=== PATIENT | female | born 1970 | race Caucasian/White ===

== ENCOUNTER 2025-05-10 16:35 | Emergency (ER) | payer MEDICAID, SELFPAY ==
[2025-05-10 16:37] VITALS: BMI 39.4
[2025-05-10 17:01] VITALS: BP 117/74; PULSE 81; RESP 20; TEMP 36.6; O2SAT 93
--- NOTE | 2025-05-10 17:31 | XR_ITS ---
Examination: PA lateral chest 2 views TECHNIQUE: Upright PA and lateral chest 2 views Date and time: May 10, 2025 1811 hours INDICATIONS: Shortness of breath today. FINDINGS: Normal heart size. Subtle opacity at the lung bases No pulmonary edema IMPRESSION: Basilar bronchitis pattern
--- NOTE | 2025-05-10 17:31 | EKG_ITS ---
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
--- NOTE | 2025-05-10 17:50 | EDNOTE_ITS ---
ED Back Injury Pain RME/HPI General Chief Complaint: Back Pain/Injury Stated Complaint: MY HEART FEELS FUNNY, I'M DYING. SOB, BACK PAIN Time Seen by Provider: 05/10/25 17:07 Arrival date/time: 05/10/25 16:35 RME / HPI RME / HPI Narrative: 55-year-old female presents to the ED with a complaint of tightness in her chest, palpitations, described as fluttering that occurred once yesterday and once today prior to arrival. She also has mid back pain and shortness of breath. She has had chills but no fever. She denies any runny nose, nasal congestion, ear pain or sore throat. She has a current cough which she attributes to her COPD. Related Data Home Medications ?Medication ?Instructions ?Recorded ?Confirmed bupropion HCl 100 mg tablet 100 mg PO BID 04/16/2105/26 clonazepam 1 mg tablet 1 mg PO HS 04/16/21 07/13/21 divalproex 500 mg tablet,extended 1,000 mg PO QPM 04/0507/13/21 release 24 hr fluticasone propionate 220 1 puff inhalation BID 04/1607/13/21 mcg/actuation HFA aerosol inhaler (Flovent HFA) buspirone 15 mg tablet 15 mg PO QDAY 07/13/2107/13 Previous Rx's ?Medication ?Instructions ?Recorded albuterol sulfate 90 mcg/actuation 1 inh inhalation QI D PRN shortness 07/17/21 aerosol inhaler of breath or wheezing #6.7 g soni budesonide-formoterol HFA 80 2 puff inhalation BID #10 .2 grams 07/17/21 mcg-4.5 mcg/actuation aerosol inhaler nicotine 7 mg/24 hr daily 7 mg topical Q24H #7 ea 07/06 11/26 transdermal patch prednisone 20 mg tablet See Taper PO QDAY #11 tabs 1 albuterol sulfate 90 mcg/actuation 2 inh inhalation Q4 H PRN shortness 09/13/22 breath activated powder inhaler of breath or wheezing #1 ea albuterol sulfate 90 mcg/actuation 2 puff inhalation Q 4H PRN 05/10/25 aerosol inhaler shortness of breath or wheez ing #8.5 grams azithromycin 250 mg tablet 250 mg PO QDAY 4 days #4 ta bs 05/10/25 (Zithromax) prednisone 20 mg tablet 60 mg (3 x 20 mg) PO QDAY 4 days 05/10/25 #12 tabs Allergies Allergy/AdvReac Type Severity Reaction Status Date / Time No Known Allergies Allergy Verified 05/10/25 16:40 Review of Systems Review of Systems Systems Reviewed: All systems reviewed, normal except as documented Past Medical History Past Medical History NEUROLOGIC: Negative Neurological Disorders CARDIAC: Positive Cardiac Disorders, Hypercholesterolemia and Hypertension; Negative Congestive Heart Failure RESPIRATORY: Positive Chronic Obstructive Pulmonary Disease (COPD), Asthma, Emphysema, Cough, Smoking and Tobacco Use GASTROINTESTINAL: Negative Gastrointestinal Disorders GENITOURINARY: Negative Genitourinary Disorders or Renal Disease ENDOCRINE: Positive Diabetes Mellitus Type 2; Negative Diabetes Mellitus Type 1 HEMATOLOGIC: Negative Sickle Cell Disease PSYCHO/SOCIAL: Positive Schizophrenia, Recreational Drug Use, Bipolar Disorder, Depression and Anxiety OTHER HISTORY: Negative Hospitalization, Autoimmune Disease, Down Syndrome, Shingles, Falls, Anesthesia Reactions or Cancer Family History FAMILY HISTORY: Positive Family Cardiac Disorders and Family Cancer Surgical History SURGICAL: Positive Abdominal Surgery and Section Social History SMOKING STATUS: Current every day smoker SECOND HAND EXPOSURE: Yes SUBSTANCE USE: methamphetamine ED Exam Narrative Physical exam: A&O, afebrile and non-toxic appearing 55-year-old female, no acute respiratory distress. Lung sounds reveal rhonchi and wheezing throughout. RRR, Abdomen is soft, nontender, and non-distended. She has no CVA tenderness. Moves all extremities well. Course Course Course Narrative: COVID and influenza A/B swabs as well as RSV swabS are negative. 2 view XR chest was ordered and reveals basilar bronchitis pattern, due to subtle opacity at the lung bases. She was given dexamethasone 10 mg p.o. and given a DuoNeb treatment. CBC reveals a normal white count, normal H&H and normal platelets. Procalcitonin is less than 0.04. Coags are normal. Chemistry panel reveals normal electrolytes with a minimally low glucose of 71. Renal function and liver functions are normal. LDH is normal at 204, troponin is normal at less than 0.002, BNP is normal at 23. Urinalysis is negative for infection. Quality Measures none Orders Category Date Time Status Bedside COVID-19 Antigen Test NOW Care 05/10/25 17:31 Active Bedside Influenza A&B Antigen Test NOW Care 05/10/25 17:32 Completed EKG (ED ONLY) *Do not use* NOW Care 05/10/25 17:31 Completed EKG (ED Only) Stat Exams 05/10/25 17:31 Draft XR chest 2V Stat Exams 05/10/25 17:31 Completed B-Type Natriuretic Peptide Stat Lab 05/10/25 17:44 Completed CBC Stat Lab 05/10/25 17:44 Completed CMP [Comprehensive Metabolic Panel] Stat Lab 05/10/25 17:44 Completed Drug Screen,Urine Stat Lab 05/10/25 18:15 Completed HCG Qualitative,Urine Stat Lab 05/10/25 18:15 Completed LDH (Lactate Dehydrogenase) Stat Lab 05/10/25 17:44 Completed Magnesium Stat Lab 05/10/25 17:44 Completed Partial Thromboplastin Time Stat Lab 05/10/25 17:44 Completed Procalcitonin Stat Lab 05/10/25 17:44 Completed Prothrombin Time with INR Stat Lab 05/10/25 17:44 Completed RSV [Respiratory Syncytial Virus Ag] Stat Lab 05/10/25 20:10 Completed Troponin I Stat Lab 05/10/25 17:44 Completed Urinalysis, C/S if Indicated Stat Lab 05/10/25 18:15 Completed Albuterol/Ipratr Rt Marly [Duoneb Rt Marly] Med 05/10/25 17:31 Discontinued 3 ml INH X1 ONE dexAMETHasone TAB [Decadron Tab] Med 05/10/25 17:31 Discontinued 10 mg PO X1 ONE Vital Signs Vital signs: Vital Signs Temperature 97.8 F 05/10/25 17:01 Pulse Rate 81 05/10/25 17:01 Respiratory Rate 20 05/10/25 17:01 Blood Pressure 117/74 05/10/25 17:01 Pulse Oximetry (%) 93 L 05/10/25 17:01 Oxygen Delivery Method Room Air 05/10/25 17:01 Back Pain / Injury MDM Narrative MDM Narrative:: Symptoms, exam and diagnostic studies are consistent with: Lower Respiratory Tract Infection. Patient was discharged home in stable condition. Patient/family advised to follow-up with their PCP in 24-48 hours. Encouraged to return to the ED for any new or worsening symptoms. Patient data External records reviewed:: [facility] previous records Clinical information provided by:: patient Social determinants that could affect healthcare access:: none Patient has the following chronic illnesses:: Schizophrenia, history of pneumonia, asthma, COPD How is presenting disease/condition affected by chronic disease/condition?: exacerbated by Evaluation data The following diagnostics were reviewed and interpreted by me:: lab results and radiology exam(s) Lab and/or radiology exams considered but not ordered:: N/A Interpretation Summary: As noted above Medications / Prescriptions Medications or Prescriptions considered but not ordered:: N/A Medication administrations:: Medication Administration History Discontinued Medications Albuterol/Ipratropium (Albuterol/Ipratropium (Duoneb) Rt Marly 3 Ml Nebu) 3 ml INH X1 ONE Stop: 05/10/25 17:32 Last Admin: 05/10/25 19:23 Dose: 3 ml Documented By: SAADIA Dexamethasone (Dexamethasone 4 Mg Tablet) 10 mg PO X1 ONE Stop: 05/10/25 17:32 Last Admin: 05/10/25 19:10 Dose: 10 mg Documented By: CB As noted above Consultations Consultation(s) initiated? (list below): No Diagnosis Differential diagnosis back pain/injury: pyelonephritis and other (Pneumonia, myofascial pain syndrome) Most likely diagnosis given after review of the tests above:: Pneumonia/lower respiratory tract infection. Admission Indicated Admission indicated?: not indicated Explain why admission is indicated or not indicated:: Patient is stable for discharge Admission Request Was there a request for admission?: No Admission Attestation Admission request attestation: N/A Disposition Plan Disposition Plan: Discharge Discharge Attestation Discharge Attestation: The patient and all family members were given an opportunity to ask questions and understood the discharge instructions. Discharge instructions specifically effects, indications for sooner follow up or return to the emergency department, and the expected course of current diagnosis. Patient condition: Stable Discharge Plan Plan Patient Disposition: HOME (Self Care) Discharge Disposition comment: Stable Prescriptions/Referrals Prescriptions/Med Rec: New azithromycin [Zithromax] 250 mg tablet 250 mg PO QDAY 4 Days Qty: 4 0RF Rx Instructions: start on day 2 of therapy albuterol sulfate 90 mcg/actuation HFA aerosol inhaler 2 puff inhalation Q4H PRN (Reason: shortness of breath or wheezing) Qty: 8.5 0RF prednisone 20 mg tablet 60 mg PO QDAY 4 Days Qty: 12 0RF No Action clonazepam 1 mg tablet 1 mg PO HS bupropion HCl 100 mg tablet 100 mg PO BID divalproex 500 mg tablet extended release 24 hr 1,000 mg PO QPM Flovent HFA 220 mcg/actuation HFA aerosol inhaler 1 puff INHALATION BID Patient Comments: INHALE ONE PUFF BY MOUTH TWICE DAILY buspirone 15 mg tablet 15 mg PO QDAY albuterol sulfate 90 mcg/actuation HFA aerosol inhaler 1 inh inhalation QID PRN (Reason: shortness of breath or wheezing) Qty: 6.7 0RF budesonide-formoterol 80-4.5 mcg/actuation HFA aerosol inhaler 2 puff inhalation BID Qty: 10.2 0RF prednisone 20 mg tablet See Taper PO QDAY Qty: 11 0RF Taper: Prednisone Taper 20 mg DAILY for 2 Days and 0 Hour 10 mg DAILY for 2 Days and 0 Hour 5 mg DAILY for 7 Days and 0 Hour nicotine 7 mg/24 hr patch 24 hour 7 mg topical Q24H Qty: 7 0RF albuterol sulfate 90 mcg/actuation aerosol powdr breath activated 2 inh inhalation Q4H PRN (Reason: shortness of breath or wheezing) Qty: 1 0RF Referrals: Deirdre Smith MD [Primary Care Provider] - In 1 week Problem List Clinical Impression: Community acquired pneumonia Patient/Caregiver Discharge Instructions Education Materials: ED Pneumonia (Adult) Additional Instructions: Take your antibiotics as prescribed and complete the course even though you may be feeling better. Use your inhaler to help with any wheezing or shortness of breath. Follow-up with your primary care physician in 24 to 48 hours. Return to the ED for any new or worsening symptoms. Print Language: Occitan Stand Alone Forms: Padma Award Info., Patient Portal Info Letter PA/CASE MANAGEMENT ASSOCIATE Supervising Physician PA/CASE MANAGEMENT ASSOCIATE Supervising Physician: Dr Waite
[2025-05-10 18:10] LABS: Basophils # (Auto) 0.1 Thou/mm3 (0.0-0.2); Basophils % (Auto) 1 % (0-2.5); Eosinophils # (Auto) 0.2 Thou/mm3 (0.0-0.5); Eosinophils % (Auto) 2 % (0-10); Hematocrit 39.6 % (36.0-46.0); Hemoglobin 13.0 g/dL (12.0-16.0); Immature Granulocytes Auto 0.03 Thou/mm3 (0.00-0.00); Lymphocytes # (Auto) 2.2 Thou/mm3 (1.0-4.8); Lymphocytes % (Auto) 28 % (10-50); Mean Corpuscular HGB Conc 32.8 g/dl (31.0-37.0); Mean Corpuscular Hemoglobin 31.3 pg (25.0-35.0); Mean Corpuscular Volume 95 fL (80-100); Monocytes # (Auto) 0.9 Thou/mm3 (0.0-0.8); Monocytes % (Auto) 11 % (0-12); Neutrophils # (Auto) 4.4 Thou/mm3 (1.8-7.7); Neutrophils % (Auto) 57 % (37-80); Nucleated Red Blood Cell # 0.00 Thou/mm3 (0.00-0.00); Nucleated Red Blood Cell % 0 /100 WBC (0); Platelet Count 332 Thou/mm3 (140-440); RDW Standard Deviation 46.6 fL (36.4-46.3); Red Blood Count 4.16 Miln/mm3 (4.00-5.20); White Blood Count 7.8 Thou/mm3 (3.6-11.0)
[2025-05-10 18:23] LABS: B-Type Natriuretic Peptide 23 pg/mL (0-100)
[2025-05-10 18:31] LABS: Alanine Aminotransferase 12 U/L (10-49); Albumin, Serum 4.6 gm/dL (3.5-5.0); Albumin/Globulin Ratio 2.2 (1.2-2.2); Alkaline Phosphatase 87 U/L (46-116); Anion Gap 7 (7-16); Aspartate Amino Transferase 16 U/L (0-34); BUN/Creatinine Ratio 7 Ratio (12-20); Bilirubin,Total 0.4 mg/dL (0.3-1.2); Blood Urea Nitrogen 6 mg/dL (9-23); Calcium 9.7 mg/dL (8.3-10.6); Calcium (Corrected) 9.7 mg/dL (8.5-10.1); Carbon Dioxide 31.5 mMol/L (20.0-31.0); Chloride 102 mMol/L (98-107); Creatinine (Component) 0.9 mg/dL (0.6-1.3); Estimated Creatinine Clearance 64.1 mL/min (>60); Globulin 2.1 gm/dL (2.3-3.5); Glucose 71 mg/dL (74-106); LDH (Lactate Dehydrogenase) 204 U/L (120-246); Magnesium 1.7 mg/dL (1.6-2.6); Osmolality,Calculated 275 (275-295); Potassium 4.0 mMol/L (3.4-5.1); Procalcitonin < 0.04 ng/ml (0.0-0.49); Sodium 140 mMol/L (136-145); Total Protein 6.7 gm/dL (5.7-8.2); Troponin I < 0.002 ng/mL (0.0-0.045); eGFR > 60 See Note
[2025-05-10 18:32] LABS: Collection Type, Urine Clean Catch; RBC,Urine 0 /hpf (0-3); WBC,Urine 0 /hpf (0-5)
[2025-05-10 18:36] LABS: INR 0.9 (0.9-1.3); Partial Thromboplastin Time 27.5 Seconds (22.0-36.0); Prothrombin Time 10.2 Seconds (9.0-12.2)
[2025-05-10 18:42] LABS: Bilirubin,Urine Negative (Negative); Blood,Urine Negative (Negative); Clarity,Urine Clear (Clear/Hazy); Color,Urine Colorless (Lt Yel-Yel); Culture Indicated,Urine Not Indicated; Glucose, Urine Negative (Negative); Ketones,Urine Negative (Negative); Leukocyte Esterase,Urine Negative (Negative); Nitrite,Urine Negative (Negative); PH,Urine 7.5 (5.0-7.0); Protein,Urine Negative (Neg - Trace); Specific Gravity,Urine 1.004 (1.001-1.035); Squamous Epithelial Cell,Urine < 1 /hpf (0-5); Urobilinogen,Urine Negative mg/dL (0.0-1.0)
[2025-05-10 18:48] LABS: Amphetamine/Methamp Scrn,U Negative (Negative); Barbiturate Screen,Urine Negative (Negative); Benzodiazepines Screen,Urine Negative (Negative); Benzoylecgonine Screen, Ur Negative (Negative); Fentanyl Screen,Urine Negative (Negative); Opiate Screen,Urine Negative (Negative); THC Screen,Urine Negative (Negative)
[2025-05-10 19:08] LABS: HCG Qualitative,Urine Negative
[2025-05-10] MEDS: ALBUTEROL/IPRATROPIUM (Duoneb) RT SOL 3 ML NEBU INH (19:23)
[2025-05-10 19:24] VITALS: PULSE 78; RESP 18; O2SAT 94
[2025-05-10 21:53] LABS: Respiratory Syncytial Virus Ag Negative (Negative)
[2025-05-10] MEDS: AZITHROMYCIN 250 MG TABLET 500 MG PO (22:43)
[2025-05-10 22:49] VITALS: BP 118/72; PULSE 72; RESP 18; TEMP 36.8; O2SAT 95
== END 2025-05-10 22:50 | disposition home or self-care (01) ==
PROVIDERS: Physician Assistant; Emergency Provider Emergency Medicine; PCP Family Medicine
DX: J44.0 Chronic obstructive pulmonary disease with (acute) lower respiratory infection (principal); J18.9 Pneumonia, unspecified organism; F17.210 Nicotine dependence, cigarettes, uncomplicated; E78.00 Pure hypercholesterolemia, unspecified; I10 Essential (primary) hypertension
CPT/HCPCS: 36415; 71046; 80053; 80307; 81001; 81025; 83615; 83735; 83880; 84145; 84484; 85025; 85610; 85730; 87400; 87634; 87811; 93005; 94640; 99283; A9270; J8540

== ENCOUNTER 2025-06-14 18:43 | Emergency (ER) | payer MEDICAID, SELFPAY ==
[2025-06-14 19:40] VITALS: BP 116/78; PULSE 90; RESP 18; TEMP 36.6; O2SAT 93; BMI 35.5
--- NOTE | 2025-06-14 19:52 | XR_ITS ---
Examination: PA lateral chest 2 views Technique: Upright PA lateral chest 2 views Date and time: June 14, 2025, 2029 6:00 PM, comparison May 10, 2025 Indications: Chest pain today. Findings: Normal heart size Moderate vascular congestion. No lobar pneumonia The osseous structures are intact. Impression: Moderate vascular congestion
--- NOTE | 2025-06-14 19:52 | EKG_ITS ---
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
[2025-06-14] MEDS: ALBUTEROL/IPRATROPIUM (Duoneb) RT SOL 3 ML NEBU 6 ML INH (20:06)
[2025-06-14 20:07] VITALS: PULSE 83; RESP 18; O2SAT 99
[2025-06-14 20:20] LABS: Basophils # (Auto) 0.1 Thou/mm3 (0.0-0.2); Basophils % (Auto) 1 % (0-2.5); Eosinophils # (Auto) 0.2 Thou/mm3 (0.0-0.5); Eosinophils % (Auto) 2 % (0-10); Hematocrit 38.5 % (36.0-46.0); Hemoglobin 13.3 g/dL (12.0-16.0); Immature Granulocytes Auto 0.02 Thou/mm3 (0.00-0.00); Lymphocytes # (Auto) 2.6 Thou/mm3 (1.0-4.8); Lymphocytes % (Auto) 27 % (10-50); Mean Corpuscular HGB Conc 34.5 g/dl (31.0-37.0); Mean Corpuscular Hemoglobin 31.9 pg (25.0-35.0); Mean Corpuscular Volume 92 fL (80-100); Monocytes # (Auto) 1.0 Thou/mm3 (0.0-0.8); Monocytes % (Auto) 10 % (0-12); Neutrophils # (Auto) 5.8 Thou/mm3 (1.8-7.7); Neutrophils % (Auto) 60 % (37-80); Nucleated Red Blood Cell # 0.00 Thou/mm3 (0.00-0.00); Nucleated Red Blood Cell % 0 /100 WBC (0); Platelet Count 307 Thou/mm3 (140-440); RDW Standard Deviation 43.1 fL (36.4-46.3); Red Blood Count 4.17 Miln/mm3 (4.00-5.20); White Blood Count 9.7 Thou/mm3 (3.6-11.0)
[2025-06-14] MEDS: DIAZEPAM 5 MG TABLET PO (20:29)
[2025-06-14] MEDS: DEXAMETHASONE SOD PHOS INJ 10 MG/ML VIAL PO (20:29)
[2025-06-14 20:45] LABS: B-Type Natriuretic Peptide < 20 pg/mL (0-100)
[2025-06-14 20:46] LABS: Alanine Aminotransferase 16 U/L (10-49); Albumin, Serum 4.3 gm/dL (3.5-5.0); Albumin/Globulin Ratio 2.0 (1.2-2.2); Alkaline Phosphatase 89 U/L (46-116); Anion Gap 9 (7-16); Aspartate Amino Transferase 18 U/L (0-34); BUN/Creatinine Ratio 6 Ratio (12-20); Bilirubin,Total 0.4 mg/dL (0.3-1.2); Blood Urea Nitrogen < 5 mg/dL (9-23); Calcium 9.8 mg/dL (8.3-10.6); Calcium (Corrected) 9.8 mg/dL (8.5-10.1); Carbon Dioxide 28.0 mMol/L (20.0-31.0); Chloride 104 mMol/L (98-107); Creatinine (Component) 0.9 mg/dL (0.6-1.3); Estimated Creatinine Clearance 68.8 mL/min (>60); Globulin 2.2 gm/dL (2.3-3.5); Glucose 82 mg/dL (74-106); Magnesium 1.8 mg/dL (1.6-2.6); Osmolality,Calculated 277 (275-295); Potassium 3.8 mMol/L (3.4-5.1); Sodium 141 mMol/L (136-145); Total Protein 6.5 gm/dL (5.7-8.2); Troponin I < 0.020 ng/mL (0.0-0.045); eGFR > 60 See Note
--- NOTE | 2025-06-15 00:53 | PD.EDSOB ---
ED SOB =RME/HPI General Chief Complaint: General Adult/Misc Complain Stated Complaint: BACK/LUNG PAIN Time Seen by Provider: 06/14/25 19:51 Arrival date/time: 06/14/25 18:43 55F with history of psych, COPD, and drug use presents to ED with upper back/lung pain and SOB. Caregiver Melanie per phone states patient gets like this when she doesn't take her meds, which includes trazadone. Patient denies fall/trauma and URI symptoms. Limitations: no limitations Related Data Home Medications ?Medication ?Instructions ?Recorded ?Confirmed bupropion HCl 100 mg tablet 100 mg PO BID 04/16/21 07/13/21 clonazepam 1 mg tablet 1 mg PO HS 04/16/21 07/13/21 divalproex 500 mg tablet,extended 1,000 mg PO QPM 04/16/21 07/13/21 release 24 hr fluticasone propionate 220 1 puff inhalation BID 04/16/21 07/13/21 mcg/actuation HFA aerosol inhaler (Flovent HFA) buspirone 15 mg tablet 15 mg PO QDAY 07/13/21 07/13/21 Previous Rx's ?Medication ?Instructions ?Recorded albuterol sulfate 90 mcg/actuation 1 inh inhalation QID PRN shortness 07/17/21 aerosol inhaler of breath or wheezing #6.7 grams budesonide-formoterol HFA 80 2 puff inhalation BID #10.2 grams 07/17/21 mcg-4.5 mcg/actuation aerosol inhaler nicotine 7 mg/24 hr daily 7 mg topical Q24H #7 ea 07/17/21 transdermal patch prednisone 20 mg tablet See Taper PO QDAY #11 tabs 07/17/21 albuterol sulfate 90 mcg/actuation 2 inh inhalation Q4H PRN shortness 09/13/22 breath activated powder inhaler of breath or wheezing #1 ea albuterol sulfate 90 mcg/actuation 2 puff inhalation Q4H PRN 05/10/25 aerosol inhaler shortness of breath or wheezing #8.5 grams Allergies Allergy/AdvReac Type Severity Reaction Status Date / Time No Known Allergies Allergy Verified 06/14/25 18:46 Review of Systems Review of Systems Systems Reviewed: All systems reviewed, normal except as documented Cardiovascular Cardiovascular: Reports as per HPI, Reports chest pain ( lung ) and Reports dyspnea Respiratory Respiratory: Reports as per HPI and Reports dyspnea Musculoskeletal Musculoskeletal: Reports as per HPI and Reports back pain Past Medical History Past Medical History NEUROLOGIC: Negative Neurological Disorders CARDIAC: Positive Cardiac Disorders, Hypercholesterolemia and Hypertension; Negative Congestive Heart Failure RESPIRATORY: Positive Chronic Obstructive Pulmonary Disease (COPD), Asthma, Emphysema, Cough, Smoking and Tobacco Use GASTROINTESTINAL: Negative Gastrointestinal Disorders GENITOURINARY: Negative Genitourinary Disorders or Renal Disease ENDOCRINE: Positive Diabetes Mellitus Type 2; Negative Diabetes Mellitus Type 1 HEMATOLOGIC: Negative Sickle Cell Disease PSYCHO/SOCIAL: Positive Schizophrenia, Recreational Drug Use, Bipolar Disorder, Depression and Anxiety OTHER HISTORY: Negative Hospitalization, Autoimmune Disease, Down Syndrome, Shingles, Falls, Anesthesia Reactions or Cancer Family History FAMILY HISTORY: Positive Family Cardiac Disorders and Family Cancer Surgical History SURGICAL: Positive Abdominal Surgery and Section Social History SMOKING STATUS: Current every day smoker SECOND HAND EXPOSURE: Yes SUBSTANCE USE: methamphetamine ED Exam General Limitations: Present no limitations General appearance: Present alert, in no apparent distress and anxious Head Head exam: Present atraumatic ENT ENT exam: Present normal exam, normal oropharynx and mucous membranes moist Neck Neck exam: Present normal inspection, full ROM and trachea midline Chest Chest inspection: Present normal inspection and symmetric chest wall rise Respiratory Respiratory exam: Present wheezes Extremities Exam Extremities exam: Present normal inspection and full ROM Back Exam Back exam: Present normal inspection and full ROM Psychiatric Psychiatric exam: Present normal affect and normal mood Course Quality Measures none Orders Category Date Time Status EKG (ED ONLY) *Do not use* NOW Care 06/14/25 19:52 Completed EKG (ED Only) Stat Exams 06/14/25 19:52 Draft XR chest 2V Stat Exams 06/14/25 19:52 Completed B-Type Natriuretic Peptide Stat Lab 06/14/25 20:09 Completed CBC Stat Lab 06/14/25 20:09 Completed Comprehensive Metabolic Panel Stat Lab 06/14/25 20:09 Completed Magnesium Stat Lab 06/14/25 20:09 Completed Troponin I Stat Lab 06/14/25 20:09 Completed Albuterol/Ipratr Rt Marly [Duoneb Rt Marly] Med 06/14/25 19:52 Discontinued 6 ml INH X1 ONE Dexamethasone Inj [Decadron Inj] Med 06/14/25 20:04 Discontinued 10 mg PO X1 ONE Diazepam [Valium] Med 06/14/25 19:52 Discontinued 5 mg PO X1 ONE dexAMETHasone TAB [Decadron Tab] Med 06/14/25 19:52 Discontinued 10 mg PO X1 ONE Vital Signs Vital signs: Vital Signs Temperature 97.8 F 06/14/25 19:40 Pulse Rate 90 06/14/25 19:40 Respiratory Rate 18 06/14/25 19:40 Blood Pressure 116/78 06/14/25 19:40 Pulse Oximetry (%) 93 L 06/14/25 19:40 Oxygen Delivery Method Room Air 06/14/25 19:40 O2 at 93% on RA Shortness of Breath / Dyspnea MDM Narrative MDM Narrative:: 55F with history of psych, COPD, and drug use presents to ED with upper back/lung pain and SOB. Caregiver Melanie per phone states patient gets like this when she doesn't take her meds, which includes trazadone. Patient denies fall/trauma and URI symptoms. Physical exam reveals wheezing in lungs. RRR. Patient is afebrile, alert, but anxious. EKG is NSR. CXR unremarkable. Normal trop and BNP. No leukocytosis. CMP unremarkable. Meds improved symptoms. Patient data External records reviewed:: [facility] previous records Clinical information provided by:: patient Social determinants that could affect healthcare access:: mental health Patient has the following chronic illnesses:: sych, COPD, and drug use How is presenting disease/condition affected by chronic disease/condition?: exacerbated by Evaluation data The following diagnostics were reviewed and interpreted by me:: lab results, radiology exam(s) and EKG tracing(s) Lab and/or radiology exams considered but not ordered:: ordered Interpretation Summary: above Medications / Prescriptions Medications or Prescriptions considered but not ordered:: ordered Medication administrations:: Medication Administration History Discontinued Medications Albuterol/Ipratropium (Albuterol/Ipratropium (Duoneb) Rt Marly 3 Ml Nebu) 6 ml INH X1 ONE Stop: 06/14/25 19:53 Last Admin: 06/14/25 20:06 Dose: 6 ml Documented By: YARY Dexamethasone (Dexamethasone 4 Mg Tablet) 10 mg PO X1 ONE Stop: 06/14/25 19:53 Last Admin: 06/14/25 20:30 Dose: Not Given Documented By: RENATA Non-Admin Reason: Cancelled by Provider Dexamethasone Sodium Phosphate (Dexamethasone Sod Phos Inj 10 Mg/Ml Vial) 10 mg PO X1 ONE Stop: 06/14/25 20:05 Last Admin: 06/14/25 20:29 Dose: 10 mg Documented By: RENATA Diazepam (Diazepam 5 Mg Tablet) 5 mg PO X1 ONE Stop: 06/14/25 19:53 Last Admin: 06/14/25 20:29 Dose: 5 mg Documented By: RENATA above Consultations Consultation(s) initiated? (list below): No Diagnosis Shortness of Breath Differential Diagnosis: acute exacerbation of chronic obstructive airways disease, congestive heart failure, community acquired pneumonia, asthma with exacerbation, pulmonary embolism and other (anxiety) Most likely diagnosis given after review of the tests above:: anxiety and COPD exacerbation Admission Indicated Admission indicated?: not indicated Admission Request Was there a request for admission?: No Disposition Plan Disposition Plan: Discharge Discharge Attestation Discharge Attestation: The patient and all family members were given an opportunity to ask questions and understood the discharge instructions. Discharge instructions specifically effects, indications for sooner follow up or return to the emergency department, and the expected course of current diagnosis. Patient condition: Stable Discharge Plan Plan Patient Disposition: HOME (Self Care) Discharge Disposition comment: Stable Prescriptions/Referrals Prescriptions/Med Rec: No Action clonazepam 1 mg tablet 1 mg PO HS bupropion HCl 100 mg tablet 100 mg PO BID divalproex 500 mg tablet extended release 24 hr 1,000 mg PO QPM Flovent HFA 220 mcg/actuation HFA aerosol inhaler 1 puff INHALATION BID Patient Comments: INHALE ONE PUFF BY MOUTH TWICE DAILY buspirone 15 mg tablet 15 mg PO QDAY albuterol sulfate 90 mcg/actuation HFA aerosol inhaler 1 inh inhalation QID PRN (Reason: shortness of breath or wheezing) Qty: 6.7 0RF budesonide-formoterol 80-4.5 mcg/actuation HFA aerosol inhaler 2 puff inhalation BID Qty: 10.2 0RF prednisone 20 mg tablet See Taper PO QDAY Qty: 11 0RF Taper: Prednisone Taper 20 mg DAILY for 2 Days and 0 Hour 10 mg DAILY for 2 Days and 0 Hour 5 mg DAILY for 7 Days and 0 Hour nicotine 7 mg/24 hr patch 24 hour 7 mg topical Q24H Qty: 7 0RF albuterol sulfate 90 mcg/actuation HFA aerosol inhaler 2 puff inhalation Q4H PRN (Reason: shortness of breath or wheezing) Qty: 8.5 0RF albuterol sulfate 90 mcg/actuation aerosol powdr breath activated 2 inh inhalation Q4H PRN (Reason: shortness of breath or wheezing) Qty: 1 0RF Referrals: No Primary/Family,Physician [Primary Care Provider] - In 1 week Problem List Clinical Impression: COPD exacerbation, Anxiety Patient/Caregiver Discharge Instructions Education Materials: ED Anxiety Reaction, ED COPD Flare Additional Instructions: Please follow-up with PCP within 24-48 hours and return immediately if symptoms worsen. Print Language: Nepali Stand Alone Forms: Patient Portal Info Letter PA/DIRECTOR OF RADIO SERVICES Supervising Physician PA/DIRECTOR OF RADIO SERVICES Supervising Physician: Dr. Waite
== END 2025-06-14 22:53 | disposition home or self-care (01) ==
PROVIDERS: Physician Assistant; Emergency Provider Emergency Medicine
DX: J44.1 Chronic obstructive pulmonary disease with (acute) exacerbation (principal); F41.9 Anxiety disorder, unspecified
CPT/HCPCS: 36415; 71046; 80053; 83735; 83880; 84484; 85025; 94640; 99283; A9270; J1100

== ENCOUNTER 2025-07-28 17:35 | Emergency (ER) | payer MEDICAID, SELFPAY ==
[2025-07-28 17:36] VITALS: BMI 35.5
[2025-07-28 18:09] VITALS: BP 101/70; PULSE 85; RESP 19; TEMP 36.7; O2SAT 96
--- NOTE | 2025-07-28 18:18 | EKG_ITS ---
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
--- NOTE | 2025-07-28 19:02 | XR_ITS ---
EXAMINATION: PA chest single view TECHNIQUE: 1. Upright PA chest single view Date and time: July 28, 2025, 1919 hours, comparison June 14, 2025 INDICATIONS: Chest pain shortness of breath today. FINDINGS: Normal heart size Abnormal interstitial opacity throughout the lungs most consistent with pneumonia Moderate osteopenia IMPRESSION: Abnormal interstitial disease diffusely throughout the lungs, most consistent with pneumonia, clinical correlation advised
--- NOTE | 2025-07-28 19:03 | PD.EDRME ---
Rapid Medical Screening Exam RME Arrival date/time: 07/28/25 17:35 55F with history of COPD presents to ED with 2 days of CP and SOB. Chief Complaint: Chest Pain Vital signs: Vital Signs Temperature 98.1 F 07/28/25 18:09 Pulse Rate 85 07/28/25 18:09 Respiratory Rate 19 07/28/25 18:09 Blood Pressure 101/70 07/28/25 18:09 Pulse Oximetry (%) 96 07/28/25 18:09 Oxygen Delivery Method Room Air 07/28/25 18:09 Exam: Wheezing in lungs Clinical Impression: COPD exacerbation
[2025-07-28] MEDS: DEXAMETHASONE SOD PHOS INJ 10 MG/ML VIAL PO (19:55)
[2025-07-28] MEDS: ALBUTEROL/IPRATROPIUM (Duoneb) RT SOL 3 ML NEBU 6 ML INH (20:09)
[2025-07-28 20:12] VITALS: PULSE 79; RESP 18; O2SAT 98
[2025-07-28 20:23] LABS: Basophils # (Auto) 0.1 Thou/mm3 (0.0-0.2); Basophils % (Auto) 1 % (0-2.5); Eosinophils # (Auto) 0.2 Thou/mm3 (0.0-0.5); Eosinophils % (Auto) 2 % (0-10); Hematocrit 41.6 % (36.0-46.0); Hemoglobin 14.1 g/dL (12.0-16.0); Immature Granulocytes Auto 0.04 Thou/mm3 (0.00-0.00); Lymphocytes # (Auto) 2.8 Thou/mm3 (1.0-4.8); Lymphocytes % (Auto) 28 % (10-50); Mean Corpuscular HGB Conc 33.9 g/dl (31.0-37.0); Mean Corpuscular Hemoglobin 31.5 pg (25.0-35.0); Mean Corpuscular Volume 93 fL (80-100); Monocytes # (Auto) 0.9 Thou/mm3 (0.0-0.8); Monocytes % (Auto) 9 % (0-12); Neutrophils # (Auto) 6.1 Thou/mm3 (1.8-7.7); Neutrophils % (Auto) 60 % (37-80); Nucleated Red Blood Cell # 0.00 Thou/mm3 (0.00-0.00); Nucleated Red Blood Cell % 0 /100 WBC (0); Platelet Count 328 Thou/mm3 (140-440); RDW Standard Deviation 43.8 fL (36.4-46.3); Red Blood Count 4.47 Miln/mm3 (4.00-5.20); White Blood Count 10.2 Thou/mm3 (3.6-11.0)
[2025-07-28 20:43] LABS: Alanine Aminotransferase 19 U/L (10-49); Albumin, Serum 5.0 gm/dL (3.5-5.0); Albumin/Globulin Ratio 2.5 (1.2-2.2); Alkaline Phosphatase 85 U/L (46-116); Anion Gap 10 (7-16); Aspartate Amino Transferase 13 U/L (0-34); BUN/Creatinine Ratio 6 Ratio (12-20); Bilirubin,Total 0.6 mg/dL (0.3-1.2); Blood Urea Nitrogen 6 mg/dL (9-23); Calcium 9.7 mg/dL (8.3-10.6); Calcium (Corrected) 9.7 mg/dL (8.5-10.1); Carbon Dioxide 27.9 mMol/L (20.0-31.0); Chloride 102 mMol/L (98-107); Creatinine (Component) 1.0 mg/dL (0.6-1.3); Estimated Creatinine Clearance 62.0 mL/min (>60); Globulin 2.0 gm/dL (2.3-3.5); Glucose 88 mg/dL (74-106); Magnesium 2.0 mg/dL (1.6-2.6); Osmolality,Calculated 276 (275-295); Potassium 3.8 mMol/L (3.4-5.1); Sodium 140 mMol/L (136-145); Total Protein 7.0 gm/dL (5.7-8.2); Troponin I < 0.002 ng/mL (0.0-0.045); eGFR > 60 See Note
[2025-07-28 20:50] LABS: B-Type Natriuretic Peptide < 20 pg/mL (0-100)
--- NOTE | 2025-07-28 21:24 | PD.EDCHEST ---
ED Chest Pain RME/HPI General Chief Complaint: Chest Pain Stated Complaint: feels like my inside is burning Source: patient Arrival date/time: 07/28/25 17:35 Mode of arrival: ambulatory Limitations: no limitations RME / HPI complaint: chest pain Onset (ago): day(s) (2) Duration: intermittent Onset: during rest Pain location: substernal Severity: mild Severity scale (1-10): 4 Quality: sharp Pain radiation: none Relieving factors: other (Relaxing) Exacerbating factors: nothing and other (Standing up, smoking) Associated symptoms: other (none) Treatments prior to arrival chest pain: other (Took her morning meds.) RME / HPI narrative: 07/28/25 17:35 55F with history of COPD presents to ED with 2 days of CP and SOB. Exam: Wheezing in lungs Impression: COPD exacerbation Related Data On Oral Contraceptives: No Home Medications ?Medication ?Instructions ?Recorded ?Confirmed bupropion HCl 100 mg tablet 100 mg PO BID 04/16/21 07/13/21 clonazepam 1 mg tablet 1 mg PO HS 04/16/21 07/13/21 divalproex 500 mg tablet,extended 1,000 mg PO QPM 04/16/21 07/13/21 release 24 hr fluticasone propionate 220 1 puff inhalation BID 04/16/21 07/13/21 mcg/actuation HFA aerosol inhaler (Flovent HFA) buspirone 15 mg tablet 15 mg PO QDAY 07/13/21 07/13/21 Previous Rx's ?Medication ?Instructions ?Recorded albuterol sulfate 90 mcg/actuation 1 inh inhalation QID PRN shortness 07/17/21 aerosol inhaler of breath or wheezing #6.7 grams budesonide-formoterol HFA 80 2 puff inhalation BID #10.2 grams 07/17/21 mcg-4.5 mcg/actuation aerosol inhaler nicotine 7 mg/24 hr daily 7 mg topical Q24H #7 ea 07/17/21 transdermal patch prednisone 20 mg tablet See Taper PO QDAY #11 tabs 07/17/21 albuterol sulfate 90 mcg/actuation 2 inh inhalation Q4H PRN shortness 09/13/22 breath activated powder inhaler of breath or wheezing #1 ea albuterol sulfate 90 mcg/actuation 2 puff inhalation Q4H PRN 05/10/25 aerosol inhaler shortness of breath or wheezing #8.5 grams azithromycin 250 mg tablet 250 mg PO QDAY 5 days #5 tabs 07/28/25 (Zithromax) prednisone 50 mg tablet 50 mg PO QDAY #7 tabs 07/28/25 Allergies Allergy/AdvReac Type Severity Reaction Status Date / Time No Known Allergies Allergy Verified 06/14/25 18:46 Past Medical History Past Medical History NEUROLOGIC: Negative Neurological Disorders CARDIAC: Positive Cardiac Disorders, Hypercholesterolemia and Hypertension; Negative Congestive Heart Failure RESPIRATORY: Positive Chronic Obstructive Pulmonary Disease (COPD), Asthma, Emphysema, Cough, Smoking and Tobacco Use GASTROINTESTINAL: Negative Gastrointestinal Disorders GENITOURINARY: Negative Genitourinary Disorders or Renal Disease ENDOCRINE: Positive Diabetes Mellitus Type 2; Negative Diabetes Mellitus Type 1 HEMATOLOGIC: Negative Sickle Cell Disease PSYCHO/SOCIAL: Positive Schizophrenia, Recreational Drug Use, Bipolar Disorder, Depression and Anxiety OTHER HISTORY: Negative Hospitalization, Autoimmune Disease, Down Syndrome, Shingles, Falls, Anesthesia Reactions or Cancer Family History FAMILY HISTORY: Positive Family Cardiac Disorders and Family Cancer Surgical History SURGICAL: Positive Abdominal Surgery and Section Social History SMOKING STATUS: Current every day smoker SECOND HAND EXPOSURE: Yes SUBSTANCE USE: methamphetamine ED Exam General Limitations: Present no limitations General appearance: Present alert and in no apparent distress Head Head exam: Present atraumatic Eye Eye exam: Present normal appearance, PERRL and EOMI ENT ENT exam: Present normal exam, normal oropharynx and mucous membranes moist Neck Neck exam: Present normal inspection, full ROM and trachea midline Chest Chest inspection: Present normal inspection and symmetric chest wall rise Respiratory Respiratory exam: Present wheezes Cardiovascular Cardiovascular exam: Present regular rate, normal rhythm and normal heart sounds Abdominal Exam Abdominal exam: Present soft and normal bowel sounds Extremities Exam Extremities exam: Present normal inspection and full ROM Back Exam Back exam: Present normal inspection and full ROM Neurological Exam Neurological exam: Present alert, oriented X3 and CN II-XII intact Psychiatric Psychiatric exam: Present normal affect and normal mood Skin Skin exam: Present warm, dry, intact and normal color Course Quality Measures none Orders Category Date Time Status EKG (ED ONLY) *Do not use* NOW Care 07/28/25 18:19 Completed EKG (ED Only) Stat Exams 07/28/25 18:18 Draft XR chest 1V portable Stat Exams 07/28/25 19:02 Completed B-Type Natriuretic Peptide Stat Lab 07/28/25 20:06 Completed CBC Stat Lab 07/28/25 20:06 Completed Comprehensive Metabolic Panel Stat Lab 07/28/25 20:06 Completed Magnesium Stat Lab 07/28/25 20:06 Completed Troponin I Stat Lab 07/28/25 20:06 Completed Albuterol/Ipratr Rt Marly [Duoneb Rt Marly] Med 07/28/25 19:02 Discontinued 6 ml INH X1 ONE Azithromycin Po [Zithromax PO] Med 07/28/25 21:26 Discontinued 500 mg PO X1 ONE Dexamethasone Inj [Decadron Inj] Med 07/28/25 19:02 Discontinued 10 mg PO X1 ONE Vital Signs Vital signs: Vital Signs Temperature 98.1 F 07/28/25 18:09 Pulse Rate 85 07/28/25 18:09 Respiratory Rate 19 07/28/25 18:09 Blood Pressure 101/70 07/28/25 18:09 Pulse Oximetry (%) 96 07/28/25 18:09 Oxygen Delivery Method Room Air 07/28/25 18:09 Chest Pain MDM Narrative MDM Narrative:: Safety net established and ECG retrieved showing no evidence of STEMI or significant ST depressions, q waves, or T wave inversion. Aspirin given. Pain resolved with combination of sublingual nitroglycerin and morphine. Repeat ECG was unchanged. Unclear cause for pain, but doubt pulmonary embolism as the patient has no risk factors and has normal vital signs with an unremarkable ECG and chest X-ray. Doubt cardiac disease as pain greater than 12 hours with negative labs, ECG, and imaging. Doubt Aortic dissection as pain not tearing in nature, not maximal at onset, and non migratory. Planned close follow up with PCP. Vital signs remained stable throughout the emergency department course. The patient was given strict return precautions and was comfortable with the plan. Heart score: 2 Return to the ER for worsening chest pain, shortness of breath, back pain, vomiting, or other complaints. Follow up in your primary care physician?s office within the next 2 to 4 days for reevaluation. 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 H&H 14 and 41 and normal. Platelets 328 and normal. No anemia, thrombocytopenia, leukocytosis. Otherwise no electrolyte abnormality. cc: Abundio Paz MD; Deirdre Smith MD; Clayton Jordan PA-C~ EXAMINATION: PA chest single view TECHNIQUE: 1. Upright PA chest single view Date and time: July 28, 2025, 1919 hours, comparison June 14, 2025 INDICATIONS: Chest pain shortness of breath today. FINDINGS: Normal heart size Abnormal interstitial opacity throughout the lungs most consistent with pneumonia Moderate osteopenia IMPRESSION: Abnormal interstitial disease diffusely throughout the lungs, most consistent with pneumonia, clinical correlation advised Medications / Prescriptions Medications or Prescriptions considered but not ordered:: None Medication administrations:: Medication Administration History Discontinued Medications Albuterol/Ipratropium (Albuterol/Ipratropium (Duoneb) Rt Marly 3 Ml Nebu) 6 ml INH X1 ONE Stop: 07/28/25 19:03 Last Admin: 07/28/25 20:09 Dose: 6 ml Documented By: ANG Azithromycin (Azithromycin 250 Mg Tablet) 500 mg PO X1 ONE Stop: 07/28/25 21:27 Last Admin: 07/28/25 21:46 Dose: 500 mg Documented By: XIAO Dexamethasone Sodium Phosphate (Dexamethasone Sod Phos Inj 10 Mg/Ml Vial) 10 mg PO X1 ONE Stop: 07/28/25 19:03 Last Admin: 07/28/25 19:55 Dose: 10 mg Documented By: As above Consultations Consultation(s) initiated? (list below): No Diagnosis Chest Pain Differential Diagnosis: atypical chest pain, st elevation myocardial infarction, costochondritis and chest pain Most likely diagnosis given after review of the tests above:: COPD exacerbation, possibly early pneumonia Admission Indicated Admission indicated?: not indicated Explain why admission is indicated or not indicated:: Patient tolerating p.o. Not hypoxic. Admission Request Was there a request for admission?: No Disposition Plan Disposition Plan: Discharge Discharge Attestation Discharge Attestation: The patient and all family members were given an opportunity to ask questions and understood the discharge instructions. Discharge instructions specifically effects, indications for sooner follow up or return to the emergency department, and the expected course of current diagnosis. Patient condition: Stable Discharge Plan Plan Patient Disposition: HOME (Self Care) Patient condition on transfer: Stable Prescriptions/Referrals Prescriptions/Med Rec: New prednisone 50 mg tablet 50 mg PO QDAY Qty: 7 0RF azithromycin [Zithromax] 250 mg tablet 250 mg PO QDAY 5 Days Qty: 5 0RF No Action clonazepam 1 mg tablet 1 mg PO HS bupropion HCl 100 mg tablet 100 mg PO BID divalproex 500 mg tablet extended release 24 hr 1,000 mg PO QPM Flovent HFA 220 mcg/actuation HFA aerosol inhaler 1 puff INHALATION BID Patient Comments: INHALE ONE PUFF BY MOUTH TWICE DAILY buspirone 15 mg tablet 15 mg PO QDAY albuterol sulfate 90 mcg/actuation HFA aerosol inhaler 1 inh inhalation QID PRN (Reason: shortness of breath or wheezing) Qty: 6.7 0RF budesonide-formoterol 80-4.5 mcg/actuation HFA aerosol inhaler 2 puff inhalation BID Qty: 10.2 0RF prednisone 20 mg tablet See Taper PO QDAY Qty: 11 0RF Taper: Prednisone Taper 20 mg DAILY for 2 Days and 0 Hour 10 mg DAILY for 2 Days and 0 Hour 5 mg DAILY for 7 Days and 0 Hour nicotine 7 mg/24 hr patch 24 hour 7 mg topical Q24H Qty: 7 0RF albuterol sulfate 90 mcg/actuation HFA aerosol inhaler 2 puff inhalation Q4H PRN (Reason: shortness of breath or wheezing) Qty: 8.5 0RF albuterol sulfate 90 mcg/actuation aerosol powdr breath activated 2 inh inhalation Q4H PRN (Reason: shortness of breath or wheezing) Qty: 1 0RF Referrals: Deirdre Smith MD [Primary Care Provider] - In 1 week Problem List Clinical Impression: Acute exacerbation of chronic obstructive pulmonary disease, PNA (pneumonia) Patient/Caregiver Discharge Instructions Education Materials: COPD Meds, ED COPD Flare, ED Pneumonia (Adult) Additional Instructions: Please talk to your doctor about trying to quit smoking. You are doing a good job but you have to do a little bit better. Take the steroids as scheduled. Take the antibiotics for the next 4 days. Return to the emergency department for worsening symptoms, any worsening shortness of breath, chest pain, or any other concerns Print Language: Israeli Stand Alone Forms: [employer]., Patient Portal Info Letter
[2025-07-28 21:46] VITALS: BP 108/76; PULSE 79; RESP 17; O2SAT 95
[2025-07-28] MEDS: AZITHROMYCIN 250 MG TABLET 500 MG PO (21:46)
== END 2025-07-28 21:51 | disposition home or self-care (01) ==
PROVIDERS: Physician Assistant; Emergency Provider Emergency Medicine; PCP Family Medicine
DX: J44.1 Chronic obstructive pulmonary disease with (acute) exacerbation (principal); J44.0 Chronic obstructive pulmonary disease with (acute) lower respiratory infection; J18.9 Pneumonia, unspecified organism
CPT/HCPCS: 36415; 71045; 80053; 83735; 83880; 84484; 85025; 93005; 94640; 99283; A9270; J1100

== ENCOUNTER 2025-08-17 16:33 | Emergency (ER) | payer MEDICAID, SELFPAY ==
[2025-08-17 16:34] VITALS: BMI 35.7
--- NOTE | 2025-08-17 16:37 | EKG_ITS ---
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
[2025-08-17 16:44] VITALS: BP 114/79; PULSE 91; RESP 20; TEMP 36.7; O2SAT 94
--- NOTE | 2025-08-17 16:46 | PD.EDRME ---
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 Denies vomiting. I briefly performed a screening evaluation to initiate work-up and expedite care. Complete history, physical exam, and plan of care is deferred to the provider in the main ED. Exam: Head: Normocephalic, atraumatic. Respiratory: Normal effort. No respiratory distress or accessory muscle use. Neuro: Speech normal. Skin: Warm, dry, normal color. Psych: Pleasant. Normal affect. Cooperative. Clinical Impression: Chest pain
--- NOTE | 2025-08-17 16:47 | XR_ITS ---
EXAMINATION: PA lateral chest 2 views TECHNIQUE: Upright PA lateral chest 2 views Date and time: August 17, 2025, 1655 hours, comparison July 28, 2025 INDICATIONS: Onset chest pain beginning several hours ago. FINDINGS: Normal heart size Again noted abnormal interstitial disease throughout the lungs with probable calcified nodule in the left upper lobe Pulmonary vasculature is mildly prominent Prominent osteopenia IMPRESSION: Abnormal interstitial disease throughout the lungs, differential would include pulmonary fibrosis, pneumonia, consider high-resolution CT chest without contrast follow-up
[2025-08-17 17:16] LABS: Basophils # (Auto) 0.1 Thou/mm3 (0.0-0.2); Basophils % (Auto) 1 % (0-2.5); Eosinophils # (Auto) 0.2 Thou/mm3 (0.0-0.5); Eosinophils % (Auto) 2 % (0-10); Hematocrit 39.3 % (36.0-46.0); Hemoglobin 13.4 g/dL (12.0-16.0); Immature Granulocytes Auto 0.04 Thou/mm3 (0.00-0.00); Lymphocytes # (Auto) 2.5 Thou/mm3 (1.0-4.8); Lymphocytes % (Auto) 24 % (10-50); Mean Corpuscular HGB Conc 34.1 g/dl (31.0-37.0); Mean Corpuscular Hemoglobin 31.2 pg (25.0-35.0); Mean Corpuscular Volume 92 fL (80-100); Monocytes # (Auto) 1.1 Thou/mm3 (0.0-0.8); Monocytes % (Auto) 11 % (0-12); Neutrophils # (Auto) 6.5 Thou/mm3 (1.8-7.7); Neutrophils % (Auto) 62 % (37-80); Nucleated Red Blood Cell # 0.00 Thou/mm3 (0.00-0.00); Nucleated Red Blood Cell % 0 /100 WBC (0); Platelet Count 334 Thou/mm3 (140-440); RDW Standard Deviation 43.5 fL (36.4-46.3); Red Blood Count 4.29 Miln/mm3 (4.00-5.20); White Blood Count 10.4 Thou/mm3 (3.6-11.0)
[2025-08-17 17:22] LABS: Collection Type, Urine Clean Catch
[2025-08-17 17:30] LABS: HCG,Qualitative Serum Negative
[2025-08-17 17:35] LABS: B-Type Natriuretic Peptide < 20 pg/mL (0-100)
[2025-08-17 17:37] LABS: Alanine Aminotransferase 20 U/L (10-49); Albumin, Serum 4.6 gm/dL (3.5-5.0); Albumin/Globulin Ratio 2.4 (1.2-2.2); Alkaline Phosphatase 80 U/L (46-116); Anion Gap 8 (7-16); Aspartate Amino Transferase 19 U/L (0-34); BUN/Creatinine Ratio 6 Ratio (12-20); Bilirubin,Total 0.4 mg/dL (0.3-1.2); Blood Urea Nitrogen < 5 mg/dL (9-23); Calcium 9.6 mg/dL (8.3-10.6); Calcium (Corrected) 9.6 mg/dL (8.5-10.1); Carbon Dioxide 28.4 mMol/L (20.0-31.0); Chloride 105 mMol/L (98-107); Creatinine (Component) 0.9 mg/dL (0.6-1.3); Estimated Creatinine Clearance 69.0 mL/min (>60); Globulin 1.9 gm/dL (2.3-3.5); Glucose 85 mg/dL (74-106); Lipase 53 U/L (12-53); Osmolality,Calculated 277 (275-295); Potassium 3.9 mMol/L (3.4-5.1); Sodium 141 mMol/L (136-145); Total Protein 6.5 gm/dL (5.7-8.2); Troponin I < 0.002 ng/mL (0.0-0.045); eGFR > 60 See Note
[2025-08-17 17:51] LABS: INR 0.9 (0.9-1.3); Prothrombin Time 9.9 Seconds (9.0-12.2)
[2025-08-17 17:51] LABS: Bacteria,Urine Rare; Bilirubin,Urine Negative (Negative); Blood,Urine Negative (Negative); Clarity,Urine Clear (Clear/Hazy); Color,Urine Colorless (Lt Yel-Yel); Culture Indicated,Urine Not Indicated; Glucose, Urine Negative (Negative); Ketones,Urine Negative (Negative); Leukocyte Esterase,Urine Negative (Negative); Nitrite,Urine Negative (Negative); PH,Urine 7.0 (5.0-7.0); Protein,Urine Negative (Neg - Trace); RBC,Urine < 1 /hpf (0-3); Specific Gravity,Urine 1.004 (1.001-1.035); Squamous Epithelial Cell,Urine < 1 /hpf (0-5); Urobilinogen,Urine Negative mg/dL (0.0-1.0); WBC,Urine 1 /hpf (0-5)
--- NOTE | 2025-08-17 19:16 | PD.EDCHEST ---
ED Chest Pain RME/HPI General Chief Complaint: Chest Pain Stated Complaint: CHEST PAIN X4 HRS, BILAT. LOWER ABD PAIN X4 HRS Time Seen by Provider: 08/17/25 18:39 Arrival date/time: 08/17/25 16:33 RME / HPI RME / HPI narrative: CC: chest pain Patient is a 55-year-old female with a past medical history of bipolar, depression, schizophrenia, on haloperidol once monthly shots, COPD secondary to current smoker [id number] history (1 pack/day) who presented to the emergency room with a chief complaint of chest pain that is bilateral starting at 2 PM on 08/17/2025. Chest pain is made worse with deep inspiration and made worse with deep palpation per patient. Pain is described as sharp when taking a deep breath in. Denied any sick contacts. Denied fever and denied chills. Denied history of cardiac disease. Patient stated she has been referred to cloth hauler but has been unable to follow secondary to physician being out of town. Duonebs, Cocci, Flu, Covid, and repeat troponin Zpack Exam: Head: Normocephalic, atraumatic. Respiratory: Normal effort. No respiratory distress or accessory muscle use. Neuro: Speech normal. Skin: Warm, dry, normal color. Psych: Pleasant. Normal affect. Cooperative. Impression: Chest pain Related Data Home Medications ?Medication ?Instructions ?Recorded ?Confirmed bupropion HCl 100 mg tablet 100 mg PO BID 04/16/21 07/13/21 clonazepam 1 mg tablet 1 mg PO HS 04/16/21 07/13/21 divalproex 500 mg tablet,extended 1,000 mg PO QPM 04/16/21 07/13/21 release 24 hr buspirone 15 mg tablet 15 mg PO QDAY 07/13/21 07/13/21 Previous Rx's ?Medication ?Instructions ?Recorded albuterol sulfate 90 mcg/actuation 1 inh inhalation QID PRN shortness 07/17/21 aerosol inhaler of breath or wheezing #6.7 grams budesonide-formoterol HFA 80 2 puff inhalation BID #10.2 grams 07/17/21 mcg-4.5 mcg/actuation aerosol inhaler nicotine 7 mg/24 hr daily 7 mg topical Q24H #7 ea 07/17/21 transdermal patch prednisone 50 mg tablet 50 mg PO QDAY #7 tabs 10/23/25 azithromycin 250 mg tablet 250 mg PO QDAY Bronchitis 3 days 08/17/25 #3 tabs Allergies Allergy/AdvReac Type Severity Reaction Status Date / Time No Known Allergies Allergy Verified 08/17/25 16:37 Review of Systems Review of Systems Narrative Review of Systems: General appearance: NO weight change, NO fatigue, NO weakness, NO fever, NO chills, NO night sweats, No cough Skin: NO rash, NO itching, NO sores, NO moles HEENT: NO Trauma, NO nausea, NO vomiting, NO visual changes, NO blurry vision, NO double vision, NO tinnitus, NO vertigo, NO ear discharge, NO rhinorrhea, NO stuffiness, NO sneezing, NO allergy, NO epistaxis. NO Hoarseness, NO sore throat, NO swollen neck. Cardiac: Yes chest pain, NO Palpitations, NO dyspnea on exertion, NO orthopnea, NO paroxysmal nocturnal dyspnea, NO edema Respiratory: NO Shortness of Breath, Yes Wheezing, Yes Cough, NO Sputum, NO hemoptysis GI:NO appetite, NO nausea, NO vomiting, NO dysphagia, NO changes in bowel frequency, NO stool color, NO diarrhea, NO constipation, NO hemetemesis, NO hemorrhoids, NO melena, NO hematechezia, NO abdominal pain, NO jaundice Renal: NO frequency, NO hesitancy, NO urgency, NO hematuria, NO nocturia, NO incontinence MSK: NO muscle weakness, NO gout, NO arthritis, NO muscle stiffness Neuro: NO headaches, NO tremors, NO weakness, NO paralysis, NO seizures, NO loss of consciousness, NO numbness. Hem: NO anemia, NO easy bruising/bleeding, NO petechiae, NO purpura Endo: NO heat/cold intolerance, NO excessive sweating, NO polyuria, NO polydipsia, NO polyphagia, NO thyroid problems, NO diabetes Pysch: NO mood, NO anxiety, NO depression ED Exam Narrative Physical exam: General Appearance: Alert & Oriented X3, well-nourished female who is sitting down in no acute distress HEENT: Skull symmetrical and atraumatic. Conjunctivae pin and moist. Pupils equal, round, reactive to light and accommodation (PERRL). External ear without lesion or discharge. Straight, nares patient, mucosa pink, no discharge. Cardio: Normal Rate and Rhythm with S1 and S2 heart sounds. No murmurs or extra heart sounds auscultated. No bruits on carotid auscultation. No peripheral edema or cyanosis. Lungs: Symmetric with good expansion. Chest and back non-tender. Breath sounds rhonchi w/ increasd wheezing bilaterally, reduced air way entry Abdomen: Non-tender, Non-distended, Normal Reactive Bowel Sounds Neuro: Alert, cooperative, oriented to person, place, and time. Speech clear. CN grossly intact. Upper motor strength 5/5 and Lower motor strength 5/5. Sensation intact. Course Quality Measures none Orders Category Date Time Status Bedside COVID-19 Antigen Test NOW Care 08/17/25 20:01 Active EKG (ED ONLY) *Do not use* NOW Care 08/17/25 16:37 Completed EKG (ED Only) Stat Exams 08/17/25 16:37 Draft XR chest 2V Stat Exams 08/17/25 16:47 Completed B-Type Natriuretic Peptide Stat Lab 08/17/25 16:55 Completed CBC Stat Lab 08/17/25 16:55 Completed Cocci Serology IgM with reflex to IgG [Cocci Serology, Lab 08/17/25 19:30 Received Unk History] Stat Comprehensive Metabolic Panel Stat Lab 08/17/25 16:55 Completed HCG,Qualitative Serum Stat Lab 08/17/25 16:55 Completed INR [Prothrombin Time with INR] Stat Lab 08/17/25 16:55 Completed Influenza A & B Rapid Panel Stat Lab 08/17/25 20:26 Completed Lipase Stat Lab 08/17/25 16:55 Completed Troponin I Stat Lab 08/17/25 16:55 Completed Troponin I Stat Lab 08/17/25 19:30 Completed Urinalysis, C/S if Indicated Stat Lab 08/17/25 17:16 Completed ALPRazoLAM [Xanax] Med 08/17/25 19:41 Discontinued 0.5 mg PO X1 ONE Albuterol/Ipratr Rt Marly [Duoneb Rt Marly] Med 08/17/25 19:12 Discontinued 3 ml INH X1 ONE Azithromycin Po [Zithromax PO] Med 08/17/25 19:28 Discontinued 500 mg PO X1 ONE predniSONE Med 08/17/25 19:28 Discontinued 40 mg PO X1 ONE Vital Signs Vital signs: Vital Signs Temperature 98.0 F 08/17/25 16:44 Pulse Rate 91 08/17/25 16:44 Respiratory Rate 20 08/17/25 16:44 Blood Pressure 114/79 08/17/25 16:44 Pulse Oximetry (%) 94 L 08/17/25 16:44 Oxygen Delivery Method Room Air 08/17/25 16:44 Chest Pain Patient data External records reviewed:: [facility] previous records Clinical information provided by:: patient Social determinants that could affect healthcare access:: mental health (Schizophrenia, Bipolar, and Depression ) Patient has the following chronic illnesses:: Schizophrenia, Bipolar, Depression, COPD, current and HLD How is presenting disease/condition affected by chronic disease/condition?: exacerbated by (hx of COPD and current smoker) Evaluation data The following diagnostics were reviewed and interpreted by me:: lab results and radiology exam(s) Lab and/or radiology exams considered but not ordered:: None Interpretation Summary: Patient is a 55 year old male with past medical history of Schizophrenia, Bipolar, depression, and COPD exacerbation who presented with chief complain of chest pain likely secondary to bronchitis to physical exam noted to have increased wheezing, pleuritic chest pain and decreased airway entry bilaterally w/ chest x-ray noted to have increased interstitial throughout all lung samaniego. Troponin negative w/ NO ST elevation on EKG. #Bronchititis Duonebs X1, Azithromycin 500 mg X 1 , and steriodX 1 Medications / Prescriptions Medications or Prescriptions considered but not ordered:: none Medication administrations:: Medication Administration History Discontinued Medications Albuterol/Ipratropium (Albuterol/Ipratropium (Duoneb) Rt Marly 3 Ml Nebu) 3 ml INH X1 ONE Stop: 08/17/25 19:13 Last Admin: 08/17/25 20:03 Dose: 3 ml Documented By: LINDSEY Alprazolam (Alprazolam 0.25 Mg Tablet) 0.5 mg PO X1 ONE Stop: 08/17/25 19:42 Last Admin: 08/17/25 20:08 Dose: 0.5 mg Documented By: KATHI Azithromycin (Azithromycin 250 Mg Tablet) 500 mg PO X1 ONE Stop: 08/17/25 19:29 Last Admin: 08/17/25 20:08 Dose: 500 mg Documented By: KATHI Prednisone (Prednisone 20 Mg Tablet) 40 mg PO X1 ONE Stop: 08/17/25 19:29 Last Admin: 08/17/25 20:08 Dose: 40 mg Documented By: KATHI same as above Consultations Consultation(s) initiated? (list below): No Diagnosis Chest Pain Differential Diagnosis: costochondritis and other (Bronchitis Vs pneumonia ) Most likely diagnosis given after review of the tests above:: Patient is a 55 year old male with past medical history of Schizophrenia, Bipolar, depression, and COPD exacerbation who presented with chief complain of chest pain likely secondary to bronchitis to physical exam noted to have increased wheezing, pleuritic chest pain and decreased airway entry bilaterally w/ chest x-ray noted to have increased interstitial throughout all lung samaniego. Troponin negative w/ NO ST elevation on EKG. - The patient's plan was discussed with attending Dr. Mariann Saenz MD PGY2 Internal Medicine Admission Indicated Admission indicated?: not indicated Admission Request Was there a request for admission?: No Disposition Plan Disposition Plan: Discharge Discharge Attestation Discharge Attestation: The patient and all family members were given an opportunity to ask questions and understood the discharge instructions. Discharge instructions specifically effects, indications for sooner follow up or return to the emergency department, and the expected course of current diagnosis. Patient condition: Stable Discharge Plan Plan Patient Disposition: HOME (Self Care) Patient condition on transfer: Stable Health Concerns: Instructions: -Please take azithromycin 250 mg orally for the next three days starting on 08/18/2025. You reicieved the first dose of antibiotics in the hospital -No physical exertion for 3 days to help rest the lungs. ?No smoking or exposure to smoking or pets or dust or cold or humidity. -Albuterol 2 puffs every 4-6 hours for 3 days to help keep the airways open. Then as needed for cough or shortness of breath. -See a private doctor on 08/19/2025 for recheck. -Please follow up with your primary care provider within one week of discharge -If your symptoms worsen,please seek immediate medical attention and return to your nearest emergency room -If you do not have a primary care provider, you may follow up at the community healthcare system at [address], [place] [address], Prescriptions/Referrals Prescriptions/Med Rec: New azithromycin 250 mg tablet 250 mg PO QDAY 3 Days Qty: 3 0RF Rx Instructions: start on day 2 of therapy on 08/18/2025, 250 mg once daily for the next three day Continued clonazepam 1 mg tablet 1 mg PO HS bupropion HCl 100 mg tablet 100 mg PO BID divalproex 500 mg tablet extended release 24 hr 1,000 mg PO QPM buspirone 15 mg tablet 15 mg PO QDAY albuterol sulfate 90 mcg/actuation HFA aerosol inhaler 1 inh inhalation QID PRN (Reason: shortness of breath or wheezing) Qty: 6.7 0RF budesonide-formoterol 80-4.5 mcg/actuation HFA aerosol inhaler 2 puff inhalation BID Qty: 10.2 0RF nicotine 7 mg/24 hr patch 24 hour 7 mg topical Q24H Qty: 7 0RF prednisone 50 mg tablet 50 mg PO QDAY Qty: 7 0RF Discontinued fluticasone propionate [Flovent HFA] 220 mcg/actuation HFA aerosol inhaler 1 puff INHALATION BID Patient Comments: INHALE ONE PUFF BY MOUTH TWICE DAILY prednisone 20 mg tablet See Taper PO QDAY Qty: 11 0RF Taper: Prednisone Taper 20 mg DAILY for 2 Days and 0 Hour 10 mg DAILY for 2 Days and 0 Hour 5 mg DAILY for 7 Days and 0 Hour albuterol sulfate 90 mcg/actuation HFA aerosol inhaler 2 puff inhalation Q4H PRN (Reason: shortness of breath or wheezing) Qty: 8.5 0RF albuterol sulfate 90 mcg/actuation aerosol powdr breath activated 2 inh inhalation Q4H PRN (Reason: shortness of breath or wheezing) Qty: 1 0RF Referrals: Deirdre Smith MD [Primary Care Provider] - In 1 week Problem List Clinical Impression: Bronchitis, Acute exacerbation of chronic obstructive pulmonary disease Patient/Caregiver Discharge Instructions Education Materials: Acute Bronchitis Print Language: Bahraini Stand Alone Forms: Padma Award Info., Patient Portal Info Letter
[2025-08-17] MEDS: ALBUTEROL/IPRATROPIUM (Duoneb) RT SOL 3 ML NEBU INH (20:03)
[2025-08-17 20:06] VITALS: PULSE 79; RESP 18; O2SAT 99
[2025-08-17 20:08] LABS: Troponin I < 0.002 ng/mL (0.0-0.045)
[2025-08-17] MEDS: AZITHROMYCIN 250 MG TABLET 500 MG PO (20:08)
[2025-08-17 20:56] LABS: Influenza A Ag Negative; Influenza B Ag Negative
[2025-08-18 13:49] LABS: Cocci Serology, IgM Negative (Negative)
[2025-08-19 12:39] LABS: Cocci Serology, IgG Negative (Negative)
== END 2025-08-17 21:13 | disposition home or self-care (01) ==
PROVIDERS: Physician Assistant; Emergency Provider Emergency Medicine; PCP Family Medicine
DX: J44.1 Chronic obstructive pulmonary disease with (acute) exacerbation (principal); J44.0 Chronic obstructive pulmonary disease with (acute) lower respiratory infection; J20.9 Acute bronchitis, unspecified; F31.9 Bipolar disorder, unspecified; F20.9 Schizophrenia, unspecified; F17.210 Nicotine dependence, cigarettes, uncomplicated
CPT/HCPCS: 36415; 71046; 80053; 81001; 83690; 83880; 84484; 84703; 85025; 85610; 86331; 86635; 87502; 87635; 93005; 94640; 99283; A9270; J7512

== ENCOUNTER 2025-08-19 16:31 | Emergency (ER) | payer MEDICAID, SELFPAY ==
[2025-08-19 16:33] VITALS: BP 101/72; PULSE 73; RESP 18; TEMP 36.3; O2SAT 96; BMI 35.7
[2025-08-19 16:34] VITALS: PULSE 72; RESP 20; O2SAT 96; BMI 35.7
--- NOTE | 2025-08-19 16:37 | PD.EDCHEST ---
ED Chest Pain RME/HPI General Chief Complaint: Chest Pain Stated Complaint: CHEST PAIN Time Seen by Provider: 08/19/25 16:43 Arrival date/time: 08/19/25 16:31 55-year-old female patient past medical history of bipolar, depression, schizophrenia, on haloperidol once monthly shots, COPD secondary to current smoker [id number] history came in with EMS regarding substernal chest pain. This been ongoing for the last 4 days, described as felt like a knife stabbing in her chest it is constant, severity moderate. Patient also been complaining of shortness of breath, significant history of active smoking Related Data Home Medications ?Medication ?Instructions ?Recorded ?Confirmed bupropion HCl 100 mg tablet 100 mg PO BID 04/16/21 07/13/21 clonazepam 1 mg tablet 1 mg PO HS 04/16/21 07/13/21 divalproex 500 mg tablet,extended 1,000 mg PO QPM 04/16/21 07/13/21 release 24 hr buspirone 15 mg tablet 15 mg PO QDAY 07/13/21 07/13/21 Previous Rx's ?Medication ?Instructions ?Recorded albuterol sulfate 90 mcg/actuation 1 inh inhalation QID PRN shortness 07/17/21 aerosol inhaler of breath or wheezing #6.7 grams budesonide-formoterol HFA 80 2 puff inhalation BID #10.2 grams 07/17/21 mcg-4.5 mcg/actuation aerosol inhaler nicotine 7 mg/24 hr daily 7 mg topical Q24H #7 ea 07/17/21 transdermal patch prednisone 50 mg tablet 50 mg PO QDAY #7 tabs 07/28/25 azithromycin 250 mg tablet 250 mg PO QDAY Bronchitis 3 days 08/17/25 #3 tabs famotidine 40 mg tablet (Pepcid) 40 mg PO BID #20 tabs 08/19/25 Allergies Allergy/AdvReac Type Severity Reaction Status Date / Time No Known Allergies Allergy Verified 08/17/25 16:37 Review of Systems Review of Systems Narrative Review of Systems: Review of system reviewed and within normal limits except mentioned in HPI ED Exam Narrative Physical exam: VITAL SIGNS: Reviewed. GENERAL APPEARANCE: Alert and interactive, follows commands, no acute distress, HEAD AND FACE: Non-traumatic. ENT: PERRL, pink conjunctivitis, eyelid no trauma, Mucous membrane moist. NECK: Supple, nontender, no nuchal rigidity. CHEST: Substernal tenderness, no crepitus, no paradoxical movement, no retractions. LUNGS: Clear, well ventilated, symmetric, no rales, no wheezing, no ronchi, no stridor, good breath sounds bilaterally. HEART: Regular rate, regular rhythm, no murmur, no gallops. ABDOMEN: Soft, positive bowel sounds, nondistended, no guarding, nontender, no rebound, no masses, RECTAL: Deferred. GENITAL: Deferred. NEUROLOGICAL: Gross motor function intact sensory function intact, Appropriate for age. MUSCULOSKELETAL: low back nontender, full range of motion. EXTREMITIES: Nontender, full range of motion. SKIN: Color pink, dry, no rash, no lacerations, no abrasions, no contusions. LYMPHATICS: Deferred. Course Quality Measures none Orders Category Date Time Status EKG (ED ONLY) *Do not use* NOW Care 08/19/25 16:44 Completed EKG (ED Only) Stat Exams 08/19/25 16:44 Draft XR chest 1V Stat Exams 08/19/25 16:44 Completed CBC Stat Lab 08/19/25 17:17 Completed Comprehensive Metabolic Panel Stat Lab 08/19/25 17:17 Completed Partial Thromboplastin Time Stat Lab 08/19/25 17:17 Completed Troponin I Stat Lab 08/19/25 17:17 Completed Urinalysis, C/S if Indicated Stat Lab 08/19/25 18:15 Completed Dexamethasone Inj [Decadron Inj] Med 08/19/25 17:03 Discontinued 10 mg PO X1 ONE Dexamethasone Inj [Decadron Inj] 10 mg Med 08/19/25 16:44 Discontinued Sodium Chloride 0.9% [Ns] 100 ml IV X1 Pantoprazole [Protonix] Med 08/19/25 16:44 Discontinued 40 mg PO X1 ONE mg Hyd/Al Hyd/Shanique Susp [Maalox Susp] Med 08/19/25 16:44 Discontinued 30 ml PO X1 ONE Vital Signs Vital signs: Vital Signs Temperature 97.3 F 08/19/25 16:33 Pulse Rate 73 08/19/25 16:33 Respiratory Rate 18 08/19/25 16:33 Blood Pressure 101/72 08/19/25 16:33 Pulse Oximetry (%) 96 08/19/25 16:33 Oxygen Delivery Method Room Air 08/19/25 16:33 Chest Pain MDM Narrative MDM Narrative:: 55-year-old female patient past medical history of bipolar, depression, schizophrenia, on haloperidol once monthly shots, COPD secondary to current smoker [id number] history came in with EMS regarding substernal chest pain. This been ongoing for the last 4 days, described as felt like a knife stabbing in her chest it is constant, severity moderate. Patient also been complaining of shortness of breath, significant history of active smoking Patient reports workup all came back unremarkable including troponin which is normal. Patient urinalysis came back unremarkable. Chest x-ray showed possible Again noted interstitial disease throughout the lungs, differential would include pulmonary fibrosis, pneumonia, clinical correlation advised EKG showed normal sinus rhythm, ventricular rate of 77 bpm, no ST segment elevation or depression noted. Patient was given Maalox, Decadron, and Protonix with complete resolution of symptoms. Patient is probably having GERD causing chest pain. Patient appears nontoxic and hemodynamically stable .Decision to discharge the patient. The patient/family was given an opportunity to ask questions and understood their discharge instructions. Discharge instructions specifically included follow up provider and time frame, current and/or new medications and possible side effects, indications for sooner follow up or return to the emergency department, and the expected course of current diagnosis. Patient reports feeling better as well and giving evidence of significant clinical improvement, I believe patient is now a candidate for discharge. Patient data External records reviewed:: None Clinical information provided by:: patient Social determinants that could affect healthcare access:: none Patient has the following chronic illnesses:: Bipolar disorder schizophrenia hypertension How is presenting disease/condition affected by chronic disease/condition?: exacerbated by Evaluation data The following diagnostics were reviewed and interpreted by me:: lab results, radiology exam(s) and EKG tracing(s) Lab and/or radiology exams considered but not ordered:: None Interpretation Summary: See MDM Medications / Prescriptions Medications or Prescriptions considered but not ordered:: None Medication administrations:: Medication Administration History Discontinued Medications Al Hydrox/Mg Hydrox/Simethicone (Mg Hyd/Al Hyd/Shanique (Maalox Reg) Susp 30 Ml Udc) 30 ml PO X1 ONE Stop: 08/19/25 16:45 Last Admin: 08/19/25 17:23 Dose: 30 ml Documented By: OA Dexamethasone Sodium Phosphate (Dexamethasone Sod Phos Inj 10 Mg/Ml Vial) 10 mg PO X1 ONE Stop: 08/19/25 17:04 Last Admin: 08/19/25 17:23 Dose: 10 mg Documented By: OA Dexamethasone Sodium Phosphate (10 mg/ Sodium Chloride) 101 mls @ 101 mls/hr IV X1 ONE Stop: 08/19/25 16:45 Last Admin: 08/19/25 17:11 Dose: Not Given Documented By: LF Non-Admin Reason: Duplicate Medication on eMAR Pantoprazole Sodium (Pantoprazole 40 Mg Tablet) 40 mg PO X1 ONE Stop: 08/19/25 16:45 Last Admin: 08/19/25 17:23 Dose: 40 mg Documented By: OA See MDM Consultations Consultation(s) initiated? (list below): No Diagnosis Chest Pain Differential Diagnosis: pneumothorax and chest pain Most likely diagnosis given after review of the tests above:: GERD causing chest pain Admission Indicated Admission indicated?: not indicated Explain why admission is indicated or not indicated:: Stable Admission Request Was there a request for admission?: No Disposition Plan Disposition Plan: Discharge Discharge Attestation Discharge Attestation: The patient was given an opportunity to ask questions and understood the discharge instructions. Discharge instructions specifically effects, indications for sooner follow up or return to the emergency department, and the expected course of current diagnosis. Patient condition: Stable Discharge Plan Plan Patient Disposition: HOME (Self Care) Discharge Disposition comment: Stable Prescriptions/Referrals Prescriptions/Med Rec: New famotidine [Pepcid] 40 mg tablet 40 mg PO BID Qty: 20 0RF No Action clonazepam 1 mg tablet 1 mg PO HS bupropion HCl 100 mg tablet 100 mg PO BID divalproex 500 mg tablet extended release 24 hr 1,000 mg PO QPM buspirone 15 mg tablet 15 mg PO QDAY albuterol sulfate 90 mcg/actuation HFA aerosol inhaler 1 inh inhalation QID PRN (Reason: shortness of breath or wheezing) Qty: 6.7 0RF budesonide-formoterol 80-4.5 mcg/actuation HFA aerosol inhaler 2 puff inhalation BID Qty: 10.2 0RF nicotine 7 mg/24 hr patch 24 hour 7 mg topical Q24H Qty: 7 0RF azithromycin 250 mg tablet 250 mg PO QDAY 3 Days Qty: 3 0RF Rx Instructions: start on day 2 of therapy on 08/18/2025, 250 mg once daily for the next three day prednisone 50 mg tablet 50 mg PO QDAY Qty: 7 0RF Referrals: Deirdre Smith MD [Primary Care Provider] - In 1 week Problem List Clinical Impression: Chest pain due to GERD Patient/Caregiver Discharge Instructions Discharge Activity: activity as tolerated Education Materials: ED GERD (Adult) Additional Instructions: Thank you for the opportunity for serving you today. You are stable for discharged . You are advised to: Follow-up with your PCP in 1 to 2 days Return to ED for worsening of symptoms Increase oral fluids Take medication as prescribed Print Language: Turkish Stand Alone Forms: Padma Award Info., Patient Portal Info Letter PA/REGISTERED RESPIRATORY TECHNICIAN Supervising Physician PA/SANJANA Supervising Physician: MD Ebenezer
--- NOTE | 2025-08-19 16:44 | XR_ITS ---
EXAMINATION: PA chest single view TECHNIQUE: Upright chest PA chest single view Date and time: August 19, 2025, 1658 hours, comparison August 17, 2025 INDICATIONS: Sharp chest pain and hypertension beginning 5 days ago. FINDINGS: Again noted interstitial disease throughout the lungs especially at the lung bases Normal heart size No pulmonary edema Moderate osteopenia IMPRESSION: Again noted interstitial disease throughout the lungs, differential would include pulmonary fibrosis, pneumonia, clinical correlation advised
--- NOTE | 2025-08-19 16:44 | EKG_ITS ---
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
[2025-08-19 17:23] LABS: Basophils # (Auto) 0.1 Thou/mm3 (0.0-0.2); Basophils % (Auto) 1 % (0-2.5); Eosinophils # (Auto) 0.2 Thou/mm3 (0.0-0.5); Eosinophils % (Auto) 2 % (0-10); Hematocrit 39.7 % (36.0-46.0); Hemoglobin 13.4 g/dL (12.0-16.0); Immature Granulocytes Auto 0.04 Thou/mm3 (0.00-0.00); Lymphocytes # (Auto) 2.5 Thou/mm3 (1.0-4.8); Lymphocytes % (Auto) 21 % (10-50); Mean Corpuscular HGB Conc 33.8 g/dl (31.0-37.0); Mean Corpuscular Hemoglobin 31.5 pg (25.0-35.0); Mean Corpuscular Volume 93 fL (80-100); Monocytes # (Auto) 1.0 Thou/mm3 (0.0-0.8); Monocytes % (Auto) 8 % (0-12); Neutrophils # (Auto) 7.9 Thou/mm3 (1.8-7.7); Neutrophils % (Auto) 68 % (37-80); Nucleated Red Blood Cell # 0.00 Thou/mm3 (0.00-0.00); Nucleated Red Blood Cell % 0 /100 WBC (0); Platelet Count 309 Thou/mm3 (140-440); RDW Standard Deviation 44.2 fL (36.4-46.3); Red Blood Count 4.25 Miln/mm3 (4.00-5.20); White Blood Count 11.7 Thou/mm3 (3.6-11.0)
[2025-08-19] MEDS: DEXAMETHASONE SOD PHOS INJ 10 MG/ML VIAL PO (17:23)
[2025-08-19] MEDS: PANTOPRAZOLE 40 MG TABLET PO (17:23)
[2025-08-19] MEDS: MG HYD/AL HYD/SIME (Maalox Reg) SUSP 30 ML UDC PO (17:23)
[2025-08-19 17:39] LABS: Partial Thromboplastin Time 26.3 Seconds (22.0-36.0)
[2025-08-19 17:41] LABS: Alanine Aminotransferase 22 U/L (10-49); Albumin, Serum 4.7 gm/dL (3.5-5.0); Albumin/Globulin Ratio 2.6 (1.2-2.2); Alkaline Phosphatase 85 U/L (46-116); Anion Gap 8 (7-16); Aspartate Amino Transferase 19 U/L (0-34); BUN/Creatinine Ratio 5 Ratio (12-20); Bilirubin,Total 0.3 mg/dL (0.3-1.2); Blood Urea Nitrogen < 5 mg/dL (9-23); Calcium 9.5 mg/dL (8.3-10.6); Calcium (Corrected) 9.5 mg/dL (8.5-10.1); Carbon Dioxide 30.8 mMol/L (20.0-31.0); Chloride 104 mMol/L (98-107); Creatinine (Component) 1.0 mg/dL (0.6-1.3); Estimated Creatinine Clearance 62.1 mL/min (>60); Globulin 1.8 gm/dL (2.3-3.5); Glucose 84 mg/dL (74-106); Osmolality,Calculated 281 (275-295); Potassium 3.5 mMol/L (3.4-5.1); Sodium 143 mMol/L (136-145); Total Protein 6.5 gm/dL (5.7-8.2); Troponin I < 0.002 ng/mL (0.0-0.045); eGFR > 60 See Note
[2025-08-19 18:25] LABS: Collection Type, Urine Clean Catch
[2025-08-19 18:32] LABS: Bacteria,Urine Rare; Bilirubin,Urine Negative (Negative); Blood,Urine Negative (Negative); Clarity,Urine Clear (Clear/Hazy); Color,Urine Colorless (Lt Yel-Yel); Culture Indicated,Urine Not Indicated; Glucose, Urine Negative (Negative); Ketones,Urine Negative (Negative); Leukocyte Esterase,Urine Negative (Negative); Nitrite,Urine Negative (Negative); PH,Urine 7.0 (5.0-7.0); Protein,Urine Negative (Neg - Trace); RBC,Urine 1 /hpf (0-3); Specific Gravity,Urine 1.005 (1.001-1.035); Squamous Epithelial Cell,Urine 1 /hpf (0-5); Urobilinogen,Urine Negative mg/dL (0.0-1.0); WBC,Urine < 1 /hpf (0-5)
[2025-08-19 19:16] VITALS: BP 129/85; PULSE 82; RESP 19; TEMP 36.6; O2SAT 94
== END 2025-08-19 19:57 | disposition home or self-care (01) ==
PROVIDERS: Nurse Practitioner Family; Emergency Provider Family Medicine; PCP Family Medicine
DX: K21.9 Gastro-esophageal reflux disease without esophagitis (principal); F17.200 Nicotine dependence, unspecified, uncomplicated; F20.9 Schizophrenia, unspecified; F31.9 Bipolar disorder, unspecified; J44.9 Chronic obstructive pulmonary disease, unspecified
CPT/HCPCS: 36415; 71045; 80053; 81001; 84484; 85025; 85730; 93005; 99283; J1100; A9270

== ENCOUNTER 2025-09-05 14:34 | Emergency (ER) | payer MEDICAID, SELFPAY ==
[2025-09-05 14:37] VITALS: BP 115/75; PULSE 83; RESP 18; TEMP 36.8; O2SAT 95
--- NOTE | 2025-09-05 14:46 | PD.EDADULT ---
ED General RME/HPI General Chief complaint: Psychiatric Symptoms Stated complaint: MENTAL EVALUATION Time Seen by Provider: 09/05/25 14:45 Arrival date/time: 09/05/25 14:34 CC: Auditory hallucination HPI patient states he has been hearing voices that have progressively gotten stronger over the years she takes medications but they do not relieve the voices. Patient states the voices are telling her that they are going to hurt her her grandson and her family. Patient is worried. Patient denies homicidal ideation or suicidal ideation. She is awake alert oriented states she takes thyroid medicine. Patient smokes 1-1/2 packs a day. Patient denies fever chills chest pain shortness of breath or difficulty breathing. Related Data Home Medications ?Medication ?Instructions ?Recorded ?Confirmed bupropion HCl 100 mg tablet 100 mg PO BID 04/16/21 07/13/21 clonazepam 1 mg tablet 1 mg PO HS 04/16/21 07/13/21 divalproex 500 mg tablet,extended 1,000 mg PO QPM 04/16/21 07/13/21 release 24 hr buspirone 15 mg tablet 15 mg PO QDAY 07/13/21 07/13/21 Previous Rx's ?Medication ?Instructions ?Recorded albuterol sulfate 90 mcg/actuation 1 inh inhalation QID PRN shortness 07/17/21 aerosol inhaler of breath or wheezing #6.7 grams budesonide-formoterol HFA 80 2 puff inhalation BID #10.2 grams 07/17/21 mcg-4.5 mcg/actuation aerosol inhaler nicotine 7 mg/24 hr daily 7 mg topical Q24H #7 ea 07/17/21 transdermal patch prednisone 50 mg tablet 50 mg PO QDAY #7 tabs 07/28/25 famotidine 40 mg tablet (Pepcid) 40 mg PO BID #20 tabs 08/19/25 Allergies Allergy/AdvReac Type Severity Reaction Status Date / Time No Known Allergies Allergy Verified 08/17/25 16:37 Review of Systems Review of Systems Narrative Review of Systems: GEN: No fever, no chills, no weight loss EYES: No discharge, no visual changes, no pain HEENT: No ear pain, no congestion, no sore throat PULM: No shortness of breath, no cough, no congestion CV: No chest pain, no dyspnea on exertion, no palpitations GI: No nausea, no vomiting, no diarrhea, no pain, no constipation : No frequency, no urgency, no dysuria MUSC/SKEL: No joint pain, no back pain SKIN: No rash PSYCH: + Auditory hallucinations, no depression HEME/LYMPH: No easy bleeding or bruising tendencies NEURO: No weakness, no headache Past Medical History Past Medical History NEUROLOGIC: Negative Neurological Disorders CARDIAC: Positive Cardiac Disorders, Hypercholesterolemia and Hypertension; Negative Congestive Heart Failure RESPIRATORY: Positive Chronic Obstructive Pulmonary Disease (COPD), Asthma, Emphysema, Cough, Smoking and Tobacco Use GASTROINTESTINAL: Negative Gastrointestinal Disorders GENITOURINARY: Negative Genitourinary Disorders or Renal Disease ENDOCRINE: Positive Diabetes Mellitus Type 2; Negative Diabetes Mellitus Type 1 HEMATOLOGIC: Negative Sickle Cell Disease PSYCHO/SOCIAL: Positive Schizophrenia, Recreational Drug Use, Bipolar Disorder, Depression and Anxiety OTHER HISTORY: Negative Hospitalization, Autoimmune Disease, Down Syndrome, Shingles, Falls, Anesthesia Reactions or Cancer Family History FAMILY HISTORY: Positive Family Cardiac Disorders and Family Cancer Surgical History SURGICAL: Positive Abdominal Surgery and Section Social History SMOKING STATUS: Current every day smoker SECOND HAND EXPOSURE: Yes SUBSTANCE USE: methamphetamine ED Exam Narrative Physical exam: [General: Appears not in any acute distress Head normocephalic HEENT: Within acceptable limits Neck is supple nontender Chest equal chest rise nontender to palpation Respiratory: Clear to auscultation no wheezes crackles or rubs CV: Rate rhythm is regular no murmurs rubs or clicks Abdomen is distended secondary to body habitus soft nontender no masses positive bowel sounds all 4 quadrants Back: No CVA tenderness no spinous process tenderness from cervical spine thoracic and lumbar spine Skin: Intact no petechiae rash induration ulceration or crepitus Extremities: Moving all extremity against resistance cap refill less than 2 seconds neurosensory intact Neuro: Awake alert oriented x3 Glascow coma 15 no focal deficits] Course Course Course Narrative: Cleared for psychiatric evaluation at 1730 Quality Measures none Orders Category Date Time Status Diet Regular Diet 09/05/25 Dinner Completed Diet Regular Diet 09/05/25 Dinner Completed Diet Regular Diet 09/06/25 Breakfast Active Alcohol, Urine Stat Lab 09/05/25 16:14 Completed CBC Stat Lab 09/05/25 15:04 Completed CMP [Comprehensive Metabolic Panel] Stat Lab 09/05/25 15:04 Completed Drug Screen,Urine Stat Lab 09/05/25 16:14 Completed HCG Qualitative,Urine Stat Lab 09/05/25 16:14 Completed Urinalysis Stat Lab 09/05/25 16:14 Completed Acetaminophen Tab [Tylenol ES Tab] Med 09/05/25 20:07 Discontinued 1,000 mg PO X1 ONE OLANZapine INJ [Zyprexa Inj] 10 mg Med 09/05/25 18:14 Discontinued Sterile Water 2.1 ml IM QDAY OLANZapine [ZyPREXA] Med 09/06/25 07:52 Discontinued 10 mg PO X1 ONE Vital Signs Vital signs: Vital Signs Temperature 98.3 F 09/05/25 14:37 Pulse Rate 83 09/05/25 14:37 Respiratory Rate 18 09/05/25 14:37 Blood Pressure 115/75 09/05/25 14:37 Pulse Oximetry (%) 95 09/05/25 14:37 Oxygen Delivery Method Room Air 09/05/25 14:37 Discharge Plan Plan Patient Disposition: HOME (Self Care) Prescriptions/Referrals Prescriptions/Med Rec: No Action clonazepam 1 mg tablet 1 mg PO HS bupropion HCl 100 mg tablet 100 mg PO BID divalproex 500 mg tablet extended release 24 hr 1,000 mg PO QPM buspirone 15 mg tablet 15 mg PO QDAY albuterol sulfate 90 mcg/actuation HFA aerosol inhaler 1 inh inhalation QID PRN (Reason: shortness of breath or wheezing) Qty: 6.7 0RF budesonide-formoterol 80-4.5 mcg/actuation HFA aerosol inhaler 2 puff inhalation BID Qty: 10.2 0RF nicotine 7 mg/24 hr patch 24 hour 7 mg topical Q24H Qty: 7 0RF prednisone 50 mg tablet 50 mg PO QDAY Qty: 7 0RF famotidine [Pepcid] 40 mg tablet 40 mg PO BID Qty: 20 0RF Referrals: Deirdre Smith MD [Primary Care Provider] - In 1 week Problem List Clinical Impression: Auditory hallucinations Patient/Caregiver Discharge Instructions Education Materials: ED Psychosis Print Language: Indonesian Stand Alone Forms: Padma Award Info., Patient Portal Info Letter MDM Clinical Information Provided by: patient and EMS Medical Records reviewed [facility] and EMS Meds/Rx considered, not ordered None Labs/Rad/Tests considered, not ordered None Chronic Illness/Social Conditions which may negatively complicate care or outcome(s)-explain: Mental health EKG EKG not done Labs Labs: interpreted by me Medication Administration(s) Medication Administration History Discontinued Medications Acetaminophen (Acetaminophen 500 Mg Tablet) 1,000 mg PO X1 ONE Stop: 09/05/25 20:08 Last Admin: 09/05/25 20:21 Dose: 1,000 mg Documented By: SHARON Olanzapine 10 mg/ Sterile (Water 2.1 ml) 0 mg IM QDAY STEPHANIE Stop: 10/05/25 18:13 Last Admin: 09/05/25 18:22 Dose: 10 dose Documented By: ER Olanzapine (Olanzapine 5 Mg Tablet) 10 mg PO X1 ONE Stop: 09/06/25 07:53 Last Admin: 09/06/25 08:31 Dose: 10 mg Documented By: SHEYLA
[2025-09-05 14:59] VITALS: BMI 37.0
[2025-09-05 15:10] LABS: Basophils # (Auto) 0.1 Thou/mm3 (0.0-0.2); Basophils % (Auto) 1 % (0-2.5); Eosinophils # (Auto) 0.2 Thou/mm3 (0.0-0.5); Eosinophils % (Auto) 3 % (0-10); Hematocrit 39.6 % (36.0-46.0); Hemoglobin 13.0 g/dL (12.0-16.0); Immature Granulocytes Auto 0.03 Thou/mm3 (0.00-0.00); Lymphocytes # (Auto) 1.8 Thou/mm3 (1.0-4.8); Lymphocytes % (Auto) 24 % (10-50); Mean Corpuscular HGB Conc 32.8 g/dl (31.0-37.0); Mean Corpuscular Hemoglobin 31.1 pg (25.0-35.0); Mean Corpuscular Volume 95 fL (80-100); Monocytes # (Auto) 0.7 Thou/mm3 (0.0-0.8); Monocytes % (Auto) 10 % (0-12); Neutrophils # (Auto) 4.8 Thou/mm3 (1.8-7.7); Neutrophils % (Auto) 63 % (37-80); Nucleated Red Blood Cell # 0.00 Thou/mm3 (0.00-0.00); Nucleated Red Blood Cell % 0 /100 WBC (0); Platelet Count 339 Thou/mm3 (140-440); RDW Standard Deviation 46.2 fL (36.4-46.3); Red Blood Count 4.18 Miln/mm3 (4.00-5.20); White Blood Count 7.6 Thou/mm3 (3.6-11.0)
[2025-09-05 15:36] LABS: Alanine Aminotransferase 30 U/L (10-49); Albumin, Serum 4.5 gm/dL (3.5-5.0); Albumin/Globulin Ratio 2.0 (1.2-2.2); Alkaline Phosphatase 94 U/L (46-116); Anion Gap 7 (7-16); Aspartate Amino Transferase 21 U/L (0-34); BUN/Creatinine Ratio 7 Ratio (12-20); Bilirubin,Total 0.2 mg/dL (0.3-1.2); Blood Urea Nitrogen 6 mg/dL (9-23); Calcium 9.8 mg/dL (8.3-10.6); Calcium (Corrected) 9.8 mg/dL (8.5-10.1); Carbon Dioxide 30.3 mMol/L (20.0-31.0); Chloride 105 mMol/L (98-107); Creatinine (Component) 0.9 mg/dL (0.6-1.3); Estimated Creatinine Clearance 70.5 mL/min (>60); Globulin 2.2 gm/dL (2.3-3.5); Glucose 116 mg/dL (74-106); Osmolality,Calculated 281 (275-295); Potassium 4.0 mMol/L (3.4-5.1); Sodium 142 mMol/L (136-145); Total Protein 6.7 gm/dL (5.7-8.2); eGFR > 60 See Note
--- NOTE | 2025-09-05 15:40 | PC.NURSE ---
Patient anxious, and crying and stating that the people that she hears are real and are hurting her by squeezing her hand.
[2025-09-05 16:39] LABS: Collection Type, Urine Clean Catch
[2025-09-05 16:48] LABS: Bilirubin,Urine Negative (Negative); Blood,Urine Negative (Negative); Budding Yeast,Urine Present; Clarity,Urine Clear (Clear/Hazy); Color,Urine Colorless (Lt Yel-Yel); Glucose, Urine Negative (Negative); Ketones,Urine Negative (Negative); Leukocyte Esterase,Urine Negative (Negative); Nitrite,Urine Negative (Negative); PH,Urine 7.0 (5.0-7.0); Protein,Urine Negative (Neg - Trace); RBC,Urine 2 /hpf (0-3); Specific Gravity,Urine 1.006 (1.001-1.035); Squamous Epithelial Cell,Urine 1 /hpf (0-5); Urobilinogen,Urine Negative mg/dL (0.0-1.0); WBC,Urine 1 /hpf (0-5)
[2025-09-05 17:00] LABS: HCG Qualitative,Urine Negative
[2025-09-05 17:18] VITALS: BP 134/81; PULSE 74; RESP 18; TEMP 36.5; O2SAT 95
[2025-09-05 17:23] LABS: Alcohol, Urine Negative (Negative); Amphetamine/Methamp Scrn,U Negative (Negative); Barbiturate Screen,Urine Negative (Negative); Benzodiazepines Screen,Urine Negative (Negative); Benzoylecgonine Screen, Ur Negative (Negative); Fentanyl Screen,Urine Negative (Negative); Opiate Screen,Urine Negative (Negative); THC Screen,Urine Negative (Negative)
[2025-09-05] MEDS: OLANZapine INJ 10 MG, Sterile Water 2.1 ML IM (18:22)
[2025-09-05] MEDS: ACETAMINOPHEN 500 MG TABLET 1000 MG PO (20:21)
[2025-09-05 21:58] VITALS: BP 90/59; PULSE 78; RESP 16; TEMP 36.5; O2SAT 94
--- NOTE | 2025-09-05 23:37 | PD.EDADDENDU ---
Emergency Room Addendum Addendum Narrative: 2300: Care assumed from Brennen Vargas NP. Past medical, surgical, social and family history reviewed. Vitals and home medications reviewed. Results and treatment plan discussed. I will assume the care of the patient at this time and will follow the patient, pending crisis evaluation in the morning. Please refer to the emergency department record for history and examination from initial visit. Patient was placed in observation for treatment and monitoring of psychiatric symptoms, at 2300 09/06/2025. Symptoms consist of hallucinations. Treatment plan includes psychiatric consult, reassessments, and possible placement into psychiatric facility. The patient had access and provided personal hygiene, shower, food, water, and daily medications. Patient remained stable while under my observation. 0630: Care signed out to Dr. Luna (emergency physician). Past medical, surgical, social and family history reviewed. Vitals and home medications reviewed. Results and treatment plan discussed. They will assume the care of the patient at this time and will follow the patient, pending crisis evaluation. At this time, observation has ended.
[2025-09-06 04:38] VITALS: BP 131/83; PULSE 74; RESP 16; TEMP 36.4; O2SAT 95
[2025-09-06 06:11] VITALS: BP 113/74; PULSE 73; RESP 16; TEMP 36.8; O2SAT 95
--- NOTE | 2025-09-06 07:16 | PD.EDADDENDU ---
Emergency Room Addendum Addendum Narrative: 0600: Care assumed from Dr. Luna, the previous shift emergency physician. Past medical, surgical, social and family history reviewed. Vitals and home medications reviewed. I will assume the care of the patient at this time, pending mental health evaluation and final disposition. Please refer to the emergency department record for history and examination from initial visit.?The following addendum documentation note is intended to reflect any pending information, findings, or radiology results not included in the patient?s initial chart. automotive tire worker has evaluated the patient in the ED. State the patient has an appointment scheduled on 09/12/2025 at 8AM at the [facility]. During my watch the patient was given her prescribed dose of Zyprexa. Will DC home.
--- NOTE | 2025-09-06 07:19 | PC.SS ---
CHIEF OPHTHALMIC TECHNICIAN met with patient and conducted a face to face assessment. PT states she went to crisis who then suggested she come to the ED if she felt unsafe, so she presented to [facility] for that reason. PT states she is currently taking her meds and regularly checks in with crisis for mental health appointments and medication. She states that the voices are telling her that they are going to remove her heart, which has resulted in poor sleep for the last 2 weeks. They also tell her that they are going to do the same to her grandson, causing her great worry. She denies SI/HI and is able to state she takes care of her basic needs. She says she has an appt with crisis on 09/12 or 09/13 and that she feels she is ok to leave. She says she eats regularly and presents as clean, appropriately dressed, and aside from her fixed delusions - is able to engage in meaningful communication. At this time she does not meet criteria for a hold. I have asked her to wait until we are able to contact crisis to verify her appointment and see if perhaps they might have an earlier one available for her. She was aligned with that. She states that if she feels worse she knows she can come to the ED or crisis at any time for help. Palmira Covarrubias, [id number]
[2025-09-06 08:20] VITALS: BP 135/86; PULSE 87; RESP 16; TEMP 37; O2SAT 95
--- NOTE | 2025-09-06 08:28 | PC.SS ---
SS follo up note; SS . Patient appeared receptive to the outpatient mental health resources. SS provided patient with community resources. SS also contacted [facility] to verify that patient is an established patient. Sales And Catering Coordinator, Nichole was able to verify that patient has a follow up appointment on 09/12 @ 9AM. SS was able to get patient in to see therapist, James Delgado on 09/08/25 @ 12:30PM. SS provided patient with follow up appointments information. SS will stand by for further needs.
== END 2025-09-06 08:40 | disposition home or self-care (01) ==
PROVIDERS: Registered Nurse General Practice; Emergency Provider Emergency Medicine; PCP Family Medicine
DX: R44.0 Auditory hallucinations (principal)
CPT/HCPCS: 36415; 80053; 80307; 80320; 81001; 81025; 85025; 96127; 96372; 99283; A4216; J2358; A9270; G0480; J2359

== ENCOUNTER 2025-10-02 12:52 | Inpatient (IN) | payer MEDICAID, SELFPAY ==
[2025-10-02] VITALS (10 sets, daily range): BP systolic 100–134; BP diastolic 61–88; PULSE 80–110; RESP 15–28; TEMP 36.4–36.7; O2SAT 92–95; BMI 33.1; BMI 37.7
--- NOTE | 2025-10-02 13:02 | EKG_ITS ---
[facility] Test Date: 2025-10-02 Pat Name: CRISTI CORNELL Department: Room: - Gender: Female Russian Teacher: : 1970 Requested By: Gerald Valdivia Order Number: [id number] Reading MD: Gerald Valdivia Measurements Intervals [place] Rate: 80 P: 26 MD: 164 QRS: 16 QRSD: 93 T: 30 QT: 388 QTc: 449 Interpretive Statements SINUS RHYTHM Compared to ECG 08/19/2025 16:56:13 Myocardial infarct finding no longer present /store/S0/[id number]/[id number].pdf
--- NOTE | 2025-10-02 13:02 | XR_ITS ---
EXAMINATION: AP chest single view TECHNIQUE: Upright AP chest portable single view Date and time: October 02, 2025, 1338 hours, comparison August 19, 2025 INDICATIONS: Shortness of breath today. FINDINGS: Mild CHF. Mild prominence left ventricle Prominent vascular congestion with early perihilar edema Prominent osteopenia IMPRESSION: Mild CHF
--- NOTE | 2025-10-02 13:04 | EDNOTE_ITS ---
ED SOB =RME/HPI General Chief Complaint: Shortness of Breath/Dyspnea Stated Complaint: SOB X1 WEEK, HX COPD & ASHTMA Time Seen by Provider: 10/02/25 13:01 Arrival date/time: 10/02/25 12:52 55-year-old female patient with significant history of chronic smoking, COPD asthma, seizure disorder, came in from the clinic for evaluation regarding shortness of breath. Patient was noted to be having shortness of breath for 1 week, associated with hypoxia. Also complained of cough for 5 days. Denies any fever denies any chest pain. Patient went to the clinic today and was noted to be satting less than 90%. Was given 1 breathing treatment in the clinic. Patient was noted to be satting 84% on room air. Denies any leg swelling. Related Data Home Medications ?Medication ?Instructions ?Recorded ?Confirmed bupropion HCl 100 mg tablet 100 mg PO BID 04/16/2105/26 clonazepam 1 mg tablet 1 mg PO HS 04/16/21 07/13/21 divalproex 500 mg tablet,extended 1,000 mg PO QPM 04/0507/13/21 release 24 hr buspirone 15 mg tablet 15 mg PO QDAY 07/13/2107/13 Previous Rx's ?Medication ?Instructions ?Recorded albuterol sulfate 90 mcg/actuation 1 inh inhalation QI D PRN shortness 07/17/21 aerosol inhaler of breath or wheezing #6.7 g soni budesonide-formoterol HFA 80 2 puff inhalation BID #10 .2 grams 07/17/21 mcg-4.5 mcg/actuation aerosol inhaler nicotine 7 mg/24 hr daily 7 mg topical Q24H #7 ea 07/06 11/26 transdermal patch prednisone 50 mg tablet 50 mg PO QDAY #7 tabs famotidine 40 mg tablet (Pepcid) 40 mg PO BID #20 tabs 08/19/25 Allergies Allergy/AdvReac Type Severity Reaction Status Date / Time No Known Allergies Allergy Verified 10/02/25 12:55 Review of Systems Review of Systems Narrative Review of Systems: Review of system reviewed and within normal limits except mentioned in HPI ED Exam Narrative Physical exam: VITAL SIGNS: Reviewed. GENERAL APPEARANCE: Alert and interactive, follows commands, no acute distress, HEAD AND FACE: Non-traumatic. ENT: PERRL, pink conjunctivitis, eyelid no trauma, Mucous membrane moist. NECK: Supple, nontender, no nuchal rigidity. CHEST: No tenderness, no crepitus, no paradoxical movement, no retractions. LUNGS: Symmetric, no rales, + wheezing, no ronchi, no stridor, decreased breath sounds bilaterally. HEART: Regular rate, regular rhythm, no murmur, no gallops. ABDOMEN: Soft, positive bowel sounds, nondistended, no guarding, nontender, no rebound, no masses, RECTAL: Deferred. GENITAL: Deferred. NEUROLOGICAL: Gross motor function intact sensory function intact, Appropriate for age. MUSCULOSKELETAL: low back nontender, full range of motion. EXTREMITIES: Nontender, full range of motion. SKIN: Color pink, dry, no rash, no lacerations, no abrasions, no contusions. LYMPHATICS: Deferred. Course Quality Measures none Orders Category Date Time Status COVID-19 Screening Questionnaire NOW Care 10/02/25 16:11 Active Decision to Admit X1 Care 10/02/25 16:10 Active EKG (ED ONLY) *Do not use* NOW Care 10/02/25 13:02 Completed EKG (ED Only) Stat Exams 10/02/25 13:02 Draft XR chest 1V Stat Exams 10/02/25 13:02 Completed B-Type Natriuretic Peptide Stat Lab 10/02/25 13:13 Completed C-Reactive Protein Stat Lab 10/02/25 13:13 Completed CBC Stat Lab 10/02/25 13:13 Completed Comprehensive Metabolic Panel Stat Lab 10/02/25 13:13 Completed Lactate (Lactic Acid) Stat Lab 10/02/25 13:13 Completed Partial Thromboplastin Time Stat Lab 10/02/25 13:13 Completed Procalcitonin Stat Lab 10/02/25 13:13 Completed Troponin I Stat Lab 10/02/25 13:13 Completed VBG [Venous Blood Gas] Stat Lab 10/02/25 13:13 Completed ALBUTEROL RT 0.5ml [Proventil Rt 0.5ml] Med 10/02/25 13:01 Discontinued 2.5 mg INH X1 ONE Ipratropium [place] Rt Amrly [Atrovent Rt Marly] Med 10/02/25 13:01 Discontinued 1 mg INH X1 ONE dexAMETHasone INJ [Decadron Inj] Med 10/02/25 13:01 Discontinued 15 mg IVP X1 ONE Vital Signs Vital signs: Vital Signs Temperature 97.7 F 10/02/25 13:00 Pulse Rate 80 10/02/25 13:00 Respiratory Rate 18 10/02/25 13:00 Blood Pressure 100/82 10/02/25 13:00 Pulse Oximetry (%) 94 L 10/02/25 13:00 Oxygen Delivery Method Nasal Cannula 10/02/25 13:00 Oxygen Flow Rate 3 10/02/25 13:00 Shortness of Breath / Dyspnea MDM Narrative MDM Narrative:: 55-year-old female patient with significant history of chronic smoking, COPD asthma, seizure disorder, came in from the clinic for evaluation regarding shortness of breath. Patient was noted to be having shortness of breath for 1 week, associated with hypoxia. Also complained of cough for 5 days. Denies any fever denies any chest pain. Patient went to the clinic today and was noted to be satting less than 90%. Was given 1 breathing treatment in the clinic. Patient was noted to be satting 84% on room air. Denies any leg swelling. EKG showed sinus rhythm, ventricular rate of 80 bpm, no ST segment elevation depression noted. Patient's VBG showed hypoxemia of 66%. There is of the labs unremarkable. Chest x-ray showed mild heart failure otherwise unremarkable. Patient was placed on 4 L nasal cannula satting 95%. Patient patient was given Decadron IV, albuterol and DuoNeb breathing treatment, with significant improvement of symptoms however when you turn off the oxygen patient desatted right away to 84%. Plan of care discussed with the patient and told me that she is very worried to go home because of hypoxia. Discussed the case with hospitalist, Dr. Lua, who admitted the patient. Patient data External records reviewed:: None Clinical information provided by:: patient Social determinants that could affect healthcare access:: none Patient has the following chronic illnesses:: COPD, asthma How is presenting disease/condition affected by chronic disease/condition?: exacerbated by Evaluation data The following diagnostics were reviewed and interpreted by me:: lab results, radiology exam(s) and EKG tracing(s) Lab and/or radiology exams considered but not ordered:: None Interpretation Summary: See above Medications / Prescriptions Medications or Prescriptions considered but not ordered:: None Medication administrations:: Medication Administration History Discontinued Medications Albuterol (Albuterol Rt 2.5 Mg/0.5 Ml Nebu) 2.5 mg INH X1 ONE Stop: 10/02/25 13:02 Last Admin: 10/02/25 13:29 Dose: 2.5 mg Documented By: BA Dexamethasone Sodium Phosphate (Dexamethasone Sod Phos Inj 10 Mg/Ml Vial) 15 mg IVP X1 ONE Stop: 10/02/25 13:02 Last Admin: 10/02/25 13:15 Dose: 15 mg Documented By: EF Ipratropium [place] (Ipratropium Rt 0.5 Mg/ 2.5 Ml Nebu) 1 mg INH X1 ONE Stop: 10/02/25 13:02 Last Admin: 10/02/25 13:29 Dose: 1 mg Documented By: BA Stable Consultations Consultation(s) initiated? (list below): No Diagnosis Shortness of Breath Differential Diagnosis: acute exacerbation of chronic obstructive airways disease and community acquired pneumonia Most likely diagnosis given after review of the tests above:: Acute exacerbation of COPD, hypoxia Admission Indicated Admission indicated?: indicated Admission Request Was there a request for admission?: Yes Admission Attestation Admission request attestation: Discussed case with [Dr. Lua] from Hospitalist service regarding admission. Discussed patients ED course, exam findings, labs, and radiology results. The Hospitalist [agrees to accept the patient for admission. Disposition Plan Disposition Plan: Admit Discharge Plan Plan Patient Disposition: Admit Acute Care w/in Hospital Prescriptions/Referrals Prescriptions/Med Rec: No Action clonazepam 1 mg tablet 1 mg PO HS bupropion HCl 100 mg tablet 100 mg PO BID divalproex 500 mg tablet extended release 24 hr 1,000 mg PO QPM buspirone 15 mg tablet 15 mg PO QDAY albuterol sulfate 90 mcg/actuation HFA aerosol inhaler 1 inh inhalation QID PRN (Reason: shortness of breath or wheezing) Qty: 6.7 0RF budesonide-formoterol 80-4.5 mcg/actuation HFA aerosol inhaler 2 puff inhalation BID Qty: 10.2 0RF nicotine 7 mg/24 hr patch 24 hour 7 mg topical Q24H Qty: 7 0RF prednisone 50 mg tablet 50 mg PO QDAY Qty: 7 0RF famotidine [Pepcid] 40 mg tablet 40 mg PO BID Qty: 20 0RF Referrals: Sunny Jones MD [Primary Care Provider, [facility]] - In 1 week Problem List Clinical Impression: Hypoxia, Acute exacerbation of chronic obstructive pulmonary disease (COPD) Patient/Caregiver Discharge Instructions Print Language: Icelandic Stand Alone Forms: Padma Award Info., Patient Portal Info Letter
[2025-10-02 13:20] LABS: Base Excess, Venous 4 (-3-3); Lactate (Lactic Acid) 1.2 mMol/L (0.4-2.0); O2 Saturation, Venous 66 % (96-97); PCO2, Venous 56 mmHg (36-56); PO2, Venous 34 mmHg (15-58); pH, Venous 7.36 (7.33-7.66)
[2025-10-02 13:22] LABS: Basophils # (Auto) 0.1 Thou/mm3 (0.0-0.2); Basophils % (Auto) 1 % (0-2.5); Eosinophils # (Auto) 0.3 Thou/mm3 (0.0-0.5); Eosinophils % (Auto) 3 % (0-10); Hematocrit 42.3 % (36.0-46.0); Hemoglobin 14.4 g/dL (12.0-16.0); Immature Granulocytes Auto 0.03 Thou/mm3 (0.00-0.00); Lymphocytes # (Auto) 1.7 Thou/mm3 (1.0-4.8); Lymphocytes % (Auto) 17 % (10-50); Mean Corpuscular HGB Conc 34.0 g/dl (31.0-37.0); Mean Corpuscular Hemoglobin 31.8 pg (25.0-35.0); Mean Corpuscular Volume 93 fL (80-100); Monocytes # (Auto) 1.1 Thou/mm3 (0.0-0.8); Monocytes % (Auto) 10 % (0-12); Neutrophils # (Auto) 7.0 Thou/mm3 (1.8-7.7); Neutrophils % (Auto) 69 % (37-80); Nucleated Red Blood Cell # 0.00 Thou/mm3 (0.00-0.00); Nucleated Red Blood Cell % 0 /100 WBC (0); Platelet Count 309 Thou/mm3 (140-440); RDW Standard Deviation 43.8 fL (36.4-46.3); Red Blood Count 4.53 Miln/mm3 (4.00-5.20); White Blood Count 10.2 Thou/mm3 (3.6-11.0)
[2025-10-02] MEDS: IPRATROPIUM RT 0.5 MG/ 2.5 ML NEBU 1 MG INH (13:29)
[2025-10-02] MEDS: ALBUTEROL RT 2.5 MG/0.5 ML NEBU INH (13:29)
[2025-10-02 13:42] LABS: Partial Thromboplastin Time 27.6 Seconds (22.0-36.0)
[2025-10-02 14:16] LABS: Alanine Aminotransferase 27 U/L (10-49); Albumin, Serum 5.0 gm/dL (3.5-5.0); Albumin/Globulin Ratio 1.9 (1.2-2.2); Alkaline Phosphatase 97 U/L (46-116); Anion Gap 10 (7-16); Aspartate Amino Transferase 28 U/L (0-34); BUN/Creatinine Ratio 6 Ratio (12-20); Bilirubin,Total 0.5 mg/dL (0.3-1.2); Blood Urea Nitrogen < 5 mg/dL (9-23); C-Reactive Protein 3.9 mg/dL (0.0-0.9); Calcium 9.4 mg/dL (8.3-10.6); Calcium (Corrected) 9.4 mg/dL (8.5-10.1); Carbon Dioxide 29.7 mMol/L (20.0-31.0); Chloride 101 mMol/L (98-107); Creatinine (Component) 0.9 mg/dL (0.6-1.3); Estimated Creatinine Clearance 77.4 mL/min (>60); Globulin 2.7 gm/dL (2.3-3.5); Glucose 107 mg/dL (74-106); Osmolality,Calculated 278 (275-295); Potassium 3.8 mMol/L (3.4-5.1); Procalcitonin < 0.04 ng/ml (0.0-0.49); Sodium 141 mMol/L (136-145); Total Protein 7.7 gm/dL (5.7-8.2); Troponin I < 0.020 ng/mL (0.0-0.045); eGFR > 60 See Note
[2025-10-02 14:41] LABS: B-Type Natriuretic Peptide < 20 pg/mL (0-100)
--- NOTE | 2025-10-02 16:56 | ESHP_ITS ---
<Statement entered by Montana Montejo MD - 10/03/25 14:35> I reviewed above note and agree with findings and plans. I have also personally examined the patient with medicine team and went over assessment and plan with medical team including internet marketing director and resident physician. <Statement entered by Alfonzo Jones MD - 10/02/25 17:50> patient was examined and case was reviewed with team including attending physician. Note reviewed, I agree with most of its contents and agree with the patient's care as documented by Dr. Sanon In summary: This is a 55-year-old female with past medical history of asthma, COPD not on home O2 (was on 2L, but taken off O2), bipolar, schizophrenia, unknown cardiac history, hypothyroidism, and GERD who presented to the ED due to progressive shortness of breath. Patient states she has had shortness of breath with increased green tinged sputum production. She also endorses subjective fevers and chills. Patient went to her primary care doctor who gave her some breathing treatments, however patient did not improve and was saturating in the 80s on room air. Patient was then brought to the ED, while in the ED she was given more breathing treatments, as well as IV steroid medications, however patient continued to require at least 4L of Oxygen barely saturating 88-92%. For this reason patient will be admitted for Acute hypoxic respiratory failure secondary to COPD exacerbation with likely superimposed pneumonia. Will start the patient on scheduled and as needed breathing treatments, IV steroid medications and IV antibiotic therapy. Case discussed with my attending Dr. Nikia Jones MD PGY-2 Disclaimer: Despite multiple revisions, due to the dictation software being used, the document bellow may not be free of grammatical errors including phonetic/typographic errors. However, this does not deter from our commitment to providing health care in the patient's best interest in mind. Documentation for date of: 10/02/25 HPI History of Present Illness Chief complaint: Shortness of breathe History of present illness: Mrs. Ma is a 55 years old female with history of asthma, COPD not on home O2 (was on 2L, but taken off O2), bipolar, schizophrenia, cardiac history (unknown), hypothyroidism, and GERD presented on 10/02/25 in the ED for shortness of breathe after failing a breathing treatment outpatient. Patient reported that since 09/29/25, she had been getting progressive short of breathe that was worse with exertion. She stated that her roommate was sick and was coughing at home. She endorse cough, chill, but denies any fever, nausea, vomiting, chest pain, orthopnea, diarrhea, or dysuria. She had prior similar episodes when she was diagnosed with COPD exacerbation. She is compliant with her inhalers. Per patient, she was seen earlier at a walk-in clinic ([facility]) and received a breathing treatment without much improvement of her symptoms. She was then referred to the ED for further treatment and evaluation. Of note, patient is currently receiving a monthly injection of Haldol for her schizophrenia. Last injection was 1 week ago. ED Course In the ED, 97.7F, HR 80, RR 18, BP 100/82, O2 94% on 3L NC. WBC 10.2, Hgb 14.4, Na 141, K 3.8, Cr 0.9, Glucose 107. She received Duoneb x 1 and dexamethasone 15mg. CXR revealed mild CHF. EKG showed NSR @ rate of 80. No acute ST abnormalities. ROS * Constitutional: Wheezing, a/o x 3, denies fever, + chills. * GI: Denies nausea, vomiting. * CV: Denies chest pain or palpitations. * Resp: +SOB, + cough * : Denies dysuria, CVA tenderness, suprapubic tenderness. * Neuro: Denies dizziness, no focal deficits. Past Medical History * COPD not on O2 * Asthma * Bipolar * Schizophrenia * Hypothyroidism * GERD Social History * Lives at home, independent baseline. * Reports [id number] history of smoking, marijuana use. denies alcohol or drug use. Surgical History * Allergies * NKDA Home Meds * Albuterol * Budesonide-formoterol * Omeprazole * Poor historian, pending med recs Exam Vital Signs Temp Pulse Resp BP Pulse Ox O2 Del Method O2 Flow Rate 97.7 F 100 15 118/83 94 L Nasal Cannula 3 10/02/25 15:19 10/02/25 15:19 10/02/25 15:19 10/02/25 15:19 10/02/25 15:19 10/02/25 15:19 10/02/25 15:19 Narrative Exam General: Alert, oriented, in no acute distress. +Wheezing, cough HEENT: Normocephalic, atraumatic. Neck: Supple, no JVD, no lymphadenopathy or thyroid enlargement. Cardiovascular: Regular rate and rhythm. No murmurs, rubs, or gallops. Respiratory: Wheezing in all lung samaniego. Abdomen: Soft, nontender, nondistended. No masses or organomegaly. Musculoskeletal: Full range of motion in all extremities. No joint swelling, tenderness, or deformities. Skin: Warm, dry, intact. No rashes or lesions. Psychiatric: Calm, cooperative, appropriate mood and affect. Results: Labs 10/02/25 13:13 10/02/25 13:13 Labs: Short CBC 10/02/25 Range/Units 13:13 WBC 10.2 (3.6-11.0) Thou/mm3 Hgb 14.4 (12.0-16.0) g/dL Hct 42.3 (36.0-46.0) % Plt Count 309 D (140-440) Thou/mm3 BMP 10/02/25 13:13 Sodium 141 Potassium 3.8 Chloride 101 Carbon Dioxide 29.7 BUN < 5 L Creatinine 0.9 Glucose 107 H Calcium 9.4 Cardiac Enzymes 10/02/25 Range/Units 13:13 Troponin I < 0.020 (0.0-0.045) ng/mL Liver Function 10/02/25 Range/Units 13:13 Total Bilirubin 0.5 (0.3-1.2) mg/dL AST 28 (0-34) U/L ALT 27 (10-49) U/L Alkaline Phosphatase 97 (46-116) U/L Albumin 5.0 (3.5-5.0) gm/dL ABG Interpretation ABG results: 10/02/25 13:13 VBG pH 7.36 VBG pCO2 56 VBG pO2 34 VBG Base Excess 4 H Quality Measures Quality Measures none Medications Home Medications and Allergies Home Medications ?Medication ?Instructions ?Recorded ?Confirmed ?Type bupropion HCl 100 mg tablet 100 mg PO BID 04/16/2105/26 History clonazepam 1 mg tablet 1 mg PO HS 04/16/21 07/13/21 History divalproex 500 mg tablet,extended 1,000 mg PO QPM 04/0507/13/21 History release 24 hr buspirone 15 mg tablet 15 mg PO QDAY 07/13/2107/13 History atorvastatin 40 mg tablet mg 10/02/25 History furosemide 40 mg tablet mg 10/02/25 History levothyroxine 88 mcg tablet mcg 10/02/25 History nicotine 21 mg/24 hr daily mg topical 10/02/25 Histor y transdermal patch Allergies Allergy/AdvReac Type Severity Reaction Status Date / Time No Known Allergies Allergy Verified 10/02/25 12:55 Visit Medications Acetaminophen (Acetaminophen 325 Mg Tablet) 650 mg PO Q6H PRN PRN Reason: PAIN SCALE 1-3 (mild Stop: 11/01/25 16:32 Albuterol/Ipratropium (Albuterol/Ipratropium (Duoneb) Rt Marly 3 Ml Nebu) 3 ml INH Q4H PRN PRN Reason: WHEEZING Stop: 11/01/25 16:37 Albuterol/Ipratropium (Albuterol/Ipratropium (Duoneb) Rt Marly 3 Ml Nebu) 3 ml INH Q4HRRT STEPHANIE Stop: 11/01/25 18:59 Heparin Sodium (Porcine) (Heparin Sod Inj 5000 Unit/Ml Vial) 5,000 unit SC BID STEPHANIE Stop: 10/16/25 20:59 Ceftriaxone Sodium/Dextrose (Rocephin/D5w 1gm Iv Premix) 1 gm in 50 mls @ 100 mls/hr IV QDAY STEPHANIE Stop: 10/09/25 16:39 Azithromycin 500 mg/ Sodium (Chloride) 250 mls @ 250 mls/hr IV QDAY@2100 STEPHANIE Stop: 10/09/25 16:40 Methylprednisolone Sodium Succinate (Methylprednisolone Sod Succ 40 Mg/Ml Vial) 40 mg IVP DAILY STEPHANIE Stop: 10/10/25 08:59 Discontinued Medications Albuterol (Albuterol Rt 2.5 Mg/0.5 Ml Nebu) 2.5 mg INH X1 ONE Stop: 10/02/25 13:02 Last Admin: 10/02/25 13:29 Dose: 2.5 mg Dexamethasone Sodium Phosphate (Dexamethasone Sod Phos Inj 10 Mg/Ml Vial) 15 mg IVP X1 ONE Stop: 10/02/25 13:02 Last Admin: 10/02/25 13:15 Dose: 15 mg Ipratropium [place] (Ipratropium Rt 0.5 Mg/ 2.5 Ml Nebu) 1 mg INH X1 ONE Stop: 10/02/25 13:02 Last Admin: 10/02/25 13:29 Dose: 1 mg Assessment & Plan Plan Mrs. Ma is a 55 years old female with history of asthma, COPD not on home O2 (was on 2L, but taken off O2), bipolar, schizophrenia, cardiac history (unknown), hypothyroidism, and GERD presented on 10/02/25 in the ED for shortness of breathe after failing a breathing treatment outpatient. She was admitted for COPD exacerbation. #Acute hypoxia secondary to #COPD Exacerbation Failed outpatient breathing treatment. Reported to have sick contact. CXR showed mild CHF. 90% on 4L on admission. - Duoneb x 1 in ED. - Dexamethasone 15mg x 1 in ED - Rocephin and azithromycin (10/02 ~ - Methylprednisone 40mg IV (10/03 ~ - Duoneb Q4H PRN - Duoneb Q4HRRT - Pending COVID, RSV, Flu A & B - Titrate O2 with goal of 88% ~ 92% Chronic medical problems #Bipolar #Schizophrenia #Hypothyroidism #GERD #Hx of smoking - Protonix 40mg QD - Received monthly injection of Haldol for schizophrenia - TSH 6.74 on admission. Continue home levothyroxine 88mcg - Resume home meds pending med recs Health maintenance Dispo: Breathing tx, COPD exacerbation. DVT prophylaxis: HEPARIN GI prophylaxis: Protonix 40 Antibiotics: Rocpehin + Azithromycin Bowel Regimen: Senna/Docusate Diet: Cardiac diet, CHO consistent low Lines: Peripheral IV Code status: Full code Case discussed with my senior resident Dr. Lua Case discussed with my attending Dr. Nikia Sanon, DO PGY 1
[2025-10-02] MEDS: AZITHROMYCIN INJ 500 MG in SODIUM CHLORIDE 0.9% 250 ML 250 ML 250 MG IV (17:03)
[2025-10-02] MEDS: cefTRIAXone/D5w 1gm IV premix 1 GM/50 ML BAG IV (17:03)
[2025-10-02 17:15] LABS: Glucose Estimated Average 117 mg/dL (80-131); Hemoglobin A1C 5.7 % Hgb (4.8-6.0)
[2025-10-02 17:32] LABS: Thyroid Stimulating Hormone 6.74 uIU/mL (0.55-4.78)
[2025-10-02] MEDS: ALBUTEROL/IPRATROPIUM (Duoneb) RT SOL 3 ML NEBU INH ×2 (19:51→22:00)
[2025-10-02] MEDS: HEPARIN SOD INJ 5000 UNIT/ML VIAL SC (19:59)
[2025-10-02] MEDS: PROMETHAZINE/DM SYRUP 5 ML DOSE PO (22:58)
[2025-10-03] VITALS (13 sets, daily range): BP systolic 105–130; BP diastolic 64–76; PULSE 75–138; RESP 18–22; TEMP 36.3–36.7; O2SAT 91–98
[2025-10-03] MEDS: ALBUTEROL/IPRATROPIUM (Duoneb) RT SOL 3 ML NEBU INH ×6 (02:07→22:35)
[2025-10-03] MEDS: LEVOTHYROXINE SODIUM 88 MCG TABLET PO (05:32)
[2025-10-03 06:04] LABS: Basophils # (Auto) 0.0 Thou/mm3 (0.0-0.2); Basophils % (Auto) 0 % (0-2.5); Eosinophils # (Auto) 0.0 Thou/mm3 (0.0-0.5); Eosinophils % (Auto) 0 % (0-10); Hematocrit 39.1 % (36.0-46.0); Hemoglobin 13.3 g/dL (12.0-16.0); Immature Granulocytes Auto 0.05 Thou/mm3 (0.00-0.00); Lymphocytes # (Auto) 1.1 Thou/mm3 (1.0-4.8); Lymphocytes % (Auto) 12 % (10-50); Mean Corpuscular HGB Conc 34.0 g/dl (31.0-37.0); Mean Corpuscular Hemoglobin 31.5 pg (25.0-35.0); Mean Corpuscular Volume 93 fL (80-100); Monocytes # (Auto) 0.6 Thou/mm3 (0.0-0.8); Monocytes % (Auto) 7 % (0-12); Neutrophils # (Auto) 7.4 Thou/mm3 (1.8-7.7); Neutrophils % (Auto) 81 % (37-80); Nucleated Red Blood Cell # 0.00 Thou/mm3 (0.00-0.00); Nucleated Red Blood Cell % 0 /100 WBC (0); Platelet Count 309 Thou/mm3 (140-440); RDW Standard Deviation 43.1 fL (36.4-46.3); Red Blood Count 4.22 Miln/mm3 (4.00-5.20); White Blood Count 9.2 Thou/mm3 (3.6-11.0)
[2025-10-03 06:44] LABS: Alanine Aminotransferase 22 U/L (10-49); Alkaline Phosphatase 87 U/L (46-116); Anion Gap 10 (7-16); Aspartate Amino Transferase 19 U/L (0-34); BUN/Creatinine Ratio 8 Ratio (12-20); Bilirubin,Total 0.3 mg/dL (0.3-1.2); Blood Urea Nitrogen 6 mg/dL (9-23); Calcium 9.5 mg/dL (8.3-10.6); Carbon Dioxide 26.0 mMol/L (20.0-31.0); Chloride 100 mMol/L (98-107); Creatinine (Component) 0.8 mg/dL (0.6-1.3); Estimated Creatinine Clearance 80.0 mL/min (>60); Glucose 185 mg/dL (74-106); Magnesium 1.8 mg/dL (1.6-2.6); Osmolality,Calculated 274 (275-295); Phosphorous 3.7 mg/dL (2.4-5.1); Potassium 3.9 mMol/L (3.4-5.1); Sodium 136 mMol/L (136-145); Total Protein 7.0 gm/dL (5.7-8.2); eGFR > 60 See Note
[2025-10-03 06:46] LABS: Calcium (Corrected) 9.7 mg/dL (8.5-10.1)
[2025-10-03 06:51] LABS: Albumin, Serum 4.4 gm/dL (3.5-5.0); Albumin/Globulin Ratio 1.7 (1.2-2.2); Globulin 2.6 gm/dL (2.3-3.5)
[2025-10-03] MEDS: PANTOPRAZOLE 40 MG TABLET PO (08:47)
[2025-10-03] MEDS: cefTRIAXone/D5w 1gm IV premix 1 GM/50 ML BAG IV (08:48)
[2025-10-03] MEDS: Magnesium Sulfate 2 GM Ivpb 2 GM/50 ML BAG IV (10:02)
[2025-10-03] MEDS: NICOTINE PATCH 7 MG/24 HR PATCH.TD24 TOP (10:02)
--- NOTE | 2025-10-03 11:22 | ESPR_ITS ---
<Statement entered by Montana Montejo MD - 10/14/25 07:44> I reviewed above note and agree with findings and plans. I have also personally examined the patient with medicine team and went over assessment and plan with medical team including sports marketing internship and resident physician. <Statement entered by Yefri Cartwright MD - 10/03/25 15:26> Patient seen and examined at bedside. I discussed and supervised with the sports marketing internship physician who took care of this patient. I personally saw and examined the patient. I agree with most of the assessment and plan. Patient continues to have increased O2 requirements, SOB, wheezing, significant cough (nonproductive). Added robitussin, increased IV steroids. Increased frequency of scheduled Duonebs. Will continue to monitor. Plan of care discussed with attending Dr. Montejo. Yefri Cartwright MD PGY-2 Documentation for date of: 10/03/25 Subjective Subjective Interval history: - Admitted overnight for acute hypoxic respiratory failure secondary to COPD exacerbation - Saturating 95% on 6L oxymask - Continues to have coughing fits, clear mucus. - Diffuse wheezing on exam - Will increase IV methylprednisolone 60 mg 3 times daily - DuoNebs q4hrrt, q2hr prn - Negative for influenza and COVID - Continue CFX and azithromycin - Started nicotine patch daily Exam Vital Signs Temp Pulse Resp BP Pulse Ox O2 Del Method O2 Flow Rate 97.4 F 99 20 105/66 93 L Oxy Mask 5 10/03/25 04:00 10/03/25 10:10/03/25 10:10/03/25 04:00 10/03/25 10:09 10/03/25 00:00 10/03/25 10:09 Narrative Exam Physical Exam General: Awake and in no acute distress. Conversational and non-toxic appearing. Obese. Saturating well on 6L oxymask. HEENT: Normocephalic, atraumatic, mucous membranes moist. Heart: Tachycardic. Regular rate and rhythm, normal S1 and S2, no murmurs appreciated. Lungs: Diffuse wheezing. Abdomen: Soft, nondistended, nontender, positive bowel sounds. No guarding or rebound tenderness. Neurologic: Alert and oriented x3, no gross neurological deficit, and patient able to move all 4 extremities. Extremities: No edema. Skin: No rash or ecchymoses. Objective Labs 10/03/25 05:36 10/03/25 05:36 Labs: Laboratory Results - last 24 hr 10/02/25 10/02/25 10/03/25 13:13 16:47 05:36 WBC 10.2 9.2 RBC 4.53 4.22 Hgb 14.4 13.3 Hct 42.3 39.1 MCV 93 93 MCH 31.8 31.5 MCHC 34.0 34.0 RDW Std Deviation 43.8 43.1 Plt Count 309 D 309 Neut % (Auto) 69 81 H Lymph % (Auto) 17 12 [place] % (Auto) 10 7 Eos % (Auto) 3 0 Baso % (Auto) 1 0 Neut # (Auto) 7.0 7.4 Lymph # (Auto) 1.7 1.1 Casey # (Auto) 1.1 H 0.6 Eos # (Auto) 0.3 0.0 Baso # (Auto) 0.1 0.0 Immature Gran # (Auto) 0.03 H 0.05 H Absolute Nucleated RBC 0.00 0.00 Immature Gran % 0 1 H Nucleated RBC % 0 0 APTT 27.6 VBG pH 7.36 VBG pCO2 56 VBG pO2 34 VBG O2 Sat (Obdulio) 66 L VBG Base Excess 4 H Sodium 141 136 Potassium 3.8 3.9 Chloride 101 100 Carbon Dioxide 29.7 26.0 Anion Gap 10 10 BUN < 5 L 6 L Creatinine 0.9 0.8 Estim Creat Clear Calc 77.4 80.0 eGFR > 60 > 60 BUN/Creatinine Ratio 6 L 8 L Glucose [address] Glu mg/dL 117 Hemoglobin A1c 5.7 Calculated Osmolality 278 274 L Lactic Acid 1.2 Calcium 9.4 9.5 Corrected Calcium 9.4 9.7 Phosphorus 3.7 Magnesium 1.8 Total Bilirubin 0.5 0.3 AST 28 19 ALT 27 22 Alkaline Phosphatase 97 87 Troponin I < 0.020 C-Reactive Prot, Quant 3.9 H B-Natriuretic Peptide < 20 Total Protein 7.7 7.0 Albumin 5.0 4.4 D Globulin 2.7 2.6 Albumin/Globulin Ratio 1.9 1.7 Procalcitonin < 0.04 TSH 6.74 H ABG Interpretation ABG results: 10/02/25 13:13 VBG pH 7.36 VBG pCO2 56 VBG pO2 34 VBG Base Excess 4 H Quality Measures Quality Measures none Assessment & Plan Assessment Current Active Medications: Generic Name Dose Route Start Last Admin Trade Name Freq PRN Reason Stop Dose Admin Acetaminophen 650 mg 10/02/25 16:33 Acetaminophen 325 Mg Tablet PO 11/01/25 16:32 Q6H PRN PAIN SCALE 1-3 (mild Albuterol/Ipratropium 3 ml 10/02/25 19:00 10/03/25 10:09 Albuterol/Ipratropium (Duoneb) Rt Marly 3 Ml Nebu INH 11/01/25 18:59 3 ml Q4HRRT STEPHANIE Administration Albuterol/Ipratropium 3 ml 10/03/25 10:00 Albuterol/Ipratropium (Duoneb) Rt Marly 3 Ml Nebu INH 11/02/25 09:59 Q2HR PRN SHORTNESS OF BREATH OR WHEEZ Heparin Sodium (Porcine) 5,000 unit 10/02/25 21:00 10/03/25 08:48 Heparin Sod Inj 5000 Unit/Ml Vial SC 10/16/25 20:59 Not Given BID STEPHANIE Ceftriaxone Sodium/Dextrose 1 gm in 50 mls @ 100 mls/hr 10/02/25 16:40 10/03/25 08:48 Rocephin/D5w 1gm Iv Premix IV 10/09/25 16:39 100 mls/hr QDAY STEPHANIE Administration Azithromycin 500 mg/ Sodium 250 mls @ 250 mls/hr 10/02/25 16:41 10/02/25 18:39 Chloride IV 10/09/25 16:40 Infused QDAY@2100 STEPHANIE Infusion Levothyroxine Sodium 88 mcg 10/03/25 06:00 10/03/25 05:32 Levothyroxine Sodium 88 Mcg Tablet PO 11/02/25 05:59 88 mcg ACBR STEPHANIE Administration Methylprednisolone Sodium Succinate 40 mg 10/03/25 21:00 Methylprednisolone Sod Succ 40 Mg/Ml Vial IVP 10/10/25 20:59 BID STEPHANIE Nicotine 7 mg 10/03/25 09:45 10/03/25 10:02 Nicotine Patch 7 Mg/24 Hr Patch.Td24 TOP 11/02/25 09:44 7 mg QDAY STEPHANIE Administration Pantoprazole Sodium 40 mg 10/03/25 09:00 10/03/25 08:47 Pantoprazole 40 Mg Tablet PO 11/02/25 08:59 40 mg QDAY STEPHANIE Administration Sennosides 1 tab 10/02/25 17:13 Senna/Docusate Sod 1 Tab Tablet PO 11/01/25 17:12 QDAY PRN CONSTIPATION Protocol Plan Patient is a 55 years old female with history of asthma, COPD not on home O2 (was on 2L, but taken off O2), bipolar, schizophrenia, cardiac history (unknown), hypothyroidism, and GERD presented on 10/02/25 in the ED for shortness of breathe after failing a breathing treatment outpatient. She was admitted for COPD exacerbation. #AHRF 2/2 COPD Exacerbation - Failed outpatient breathing treatment - Reported to have sick contact - 90% on 4L on admission. - CXR showed mild CHF. - Influenza A&B, COVID-negative Plan: - Increase IV methylprednisone to 60mg TID (10/03- - Duoneb Q4HRRT, Q2H PRN - Rocephin (10/02- - Azithromycin (10/02- - Pending RSV - Titrate O2 with goal of 88%-92% #Bipolar #Schizophrenia - Received monthly injection of Haldol for schizophrenia, last injection a couple days prior to [place] (09/26 or 09/27) - No active treatment at this time #Hypothyroidism - TSH 6.74 on admission - Levothyroxine 88mcg daily #GERD - Protonix 40mg QD #Hx of smoking - Nicotine patch 7 mg daily Health maintenance Dispo: med surg, COPD exacerbation DVT prophylaxis: Lovenox GI prophylaxis: Protonix 40 Antibiotics: Rocpehin + Azithromycin Bowel: Senna/Docusate Diet: Cardiac diet, CHO consistent low Lines: Peripheral IV Code status: Full code Patient plan of care was discussed with the senior resident, Dr. Antonio, and the attending physician, Dr. Montejo. Nichole Driscoll DO, PGY-1
[2025-10-03] MEDS: guaiFENesin SYRUP 200 MG/10 ML UDC PO ×2 (12:34→23:47)
--- NOTE | 2025-10-03 12:55 | PC.SS ---
Jenn Arrieta is a 55-year-old female admitted to Med Surg for SOB. SS conducted bedside contact with the patient to complete initial assessment and to discuss discharge planning. Role and reason explained. Patient confirmed demographic information. Patient identifies her dtr Claudette Mondragon [phone] as her surrogate decision maker. Pt states she is able to complete most ADL?s independently but she has an [employer] worker that helps. Pt does not possess any DME. Pts PCP is Dr. Jones. Pharmacy of choice is [facility]. Discharge options discussed and the pt wishes to return home.? Family will provide transportation upon DC. No further intervention required at this time, nursing home social worker would be available to address any further concerns. DC Plan: Home Contact: Claudette Wright Address: Confirmed on face sheet PCP: Robert
[2025-10-03] MEDS: ACETAMINOPHEN 325 MG TABLET 650 MG PO (14:11)
--- NOTE | 2025-10-03 15:14 | PC.SS ---
Rounding: On iv steroids, on O2, DC plan home 1-2 days
[2025-10-03] MEDS: IBUPROFEN TAB 600 MG TABLET PO (17:55)
[2025-10-03] MEDS: AZITHROMYCIN INJ 500 MG in SODIUM CHLORIDE 0.9% 250 ML 250 ML 250 MG IV (20:49)
[2025-10-04] VITALS (15 sets, daily range): BP systolic 109–143; BP diastolic 67–86; PULSE 80–111; RESP 18–90; TEMP 36.1–36.2; O2SAT 88–97
[2025-10-04] MEDS: ALBUTEROL/IPRATROPIUM (Duoneb) RT SOL 3 ML NEBU INH ×6 (03:21→23:24)
[2025-10-04] MEDS: LEVOTHYROXINE SODIUM 88 MCG TABLET PO (05:40)
[2025-10-04 06:09] LABS: Basophils # (Auto) 0.0 Thou/mm3 (0.0-0.2); Basophils % (Auto) 0 % (0-2.5); Eosinophils # (Auto) 0.0 Thou/mm3 (0.0-0.5); Eosinophils % (Auto) 0 % (0-10); Hematocrit 38.4 % (36.0-46.0); Hemoglobin 12.9 g/dL (12.0-16.0); Immature Granulocytes Auto 0.11 Thou/mm3 (0.00-0.00); Lymphocytes # (Auto) 0.8 Thou/mm3 (1.0-4.8); Lymphocytes % (Auto) 5 % (10-50); Mean Corpuscular HGB Conc 33.6 g/dl (31.0-37.0); Mean Corpuscular Hemoglobin 31.8 pg (25.0-35.0); Mean Corpuscular Volume 95 fL (80-100); Monocytes # (Auto) 1.0 Thou/mm3 (0.0-0.8); Monocytes % (Auto) 6 % (0-12); Neutrophils # (Auto) 13.7 Thou/mm3 (1.8-7.7); Neutrophils % (Auto) 88 % (37-80); Nucleated Red Blood Cell # 0.00 Thou/mm3 (0.00-0.00); Nucleated Red Blood Cell % 0 /100 WBC (0); Platelet Count 330 Thou/mm3 (140-440); RDW Standard Deviation 44.6 fL (36.4-46.3); Red Blood Count 4.06 Miln/mm3 (4.00-5.20); White Blood Count 15.6 Thou/mm3 (3.6-11.0)
[2025-10-04 06:28] LABS: Alanine Aminotransferase 20 U/L (10-49); Albumin, Serum 4.5 gm/dL (3.5-5.0); Albumin/Globulin Ratio 1.7 (1.2-2.2); Alkaline Phosphatase 82 U/L (46-116); Anion Gap 9 (7-16); Aspartate Amino Transferase 14 U/L (0-34); BUN/Creatinine Ratio 9 Ratio (12-20); Bilirubin,Total 0.2 mg/dL (0.3-1.2); Blood Urea Nitrogen 7 mg/dL (9-23); Calcium 9.7 mg/dL (8.3-10.6); Calcium (Corrected) 9.7 mg/dL (8.5-10.1); Carbon Dioxide 28.9 mMol/L (20.0-31.0); Chloride 101 mMol/L (98-107); Creatinine (Component) 0.8 mg/dL (0.6-1.3); Estimated Creatinine Clearance 80.0 mL/min (>60); Globulin 2.6 gm/dL (2.3-3.5); Glucose 145 mg/dL (74-106); Magnesium 2.2 mg/dL (1.6-2.6); Osmolality,Calculated 278 (275-295); Phosphorous 2.5 mg/dL (2.4-5.1); Potassium 4.2 mMol/L (3.4-5.1); Sodium 139 mMol/L (136-145); Total Protein 7.1 gm/dL (5.7-8.2); eGFR > 60 See Note
[2025-10-04] MEDS: NICOTINE PATCH 7 MG/24 HR PATCH.TD24 TOP (08:13)
[2025-10-04] MEDS: PANTOPRAZOLE 40 MG TABLET PO (08:13)
[2025-10-04] MEDS: cefTRIAXone/D5w 1gm IV premix 1 GM/50 ML BAG IV (08:13)
--- NOTE | 2025-10-04 09:50 | ESPR_ITS ---
<Statement entered by Yefri Cartwright MD - 10/04/25 16:07> Patient seen and examined at bedside. I discussed and supervised with the marketing research intern physician who took care of this patient. I personally saw and examined the patient. I agree with most of the assessment and plan. Patient ambulatory, comfortable, still requires O2 to maintain saturation. Significant wheezing on exam, continue IV steroids. WBC increased likely due to increased steroids. Will continue to wean down O2. Plan of care discussed with attending Dr. Herrera. Yefri Cartwright MD PGY-2 Documentation for date of: 10/04/25 Subjective Subjective Interval history: - No acute events overnight. - Continues to have intermittent coughing fits, improved with guafenesin. - O2 requirements decreased to 4 L via oxy mask, will continue to wean as tolerated - WBC increased to 15.6, likely secondary to steroids - Restarted home dose buspirone 30 mg BID, risperidone 5 mg nightly, trazodone 150 mg nightly - Continue current steroid and Duoneb regimen - Azithromycin (10/02-10/04) - Continue CFX (10/02- - Anticipate discharge tomorrow if patient is stable off oxygen Exam Vital Signs Temp Pulse Resp BP Pulse Ox O2 Del Method O2 Flow Rate 97.2 F 80 20 111/76 93 L Oxy Mask 5 10/04/25 07:32 10/04/25 07:34 10/04/25 07:34 10/04/25 07:32 10/04/25 07:34 10/04/25 07:32 10/04/25 07:34 Narrative Exam Physical Exam General: Awake and in no acute distress. Conversational and non-toxic appearing. Obese. Saturating well on 4L oxymask. HEENT: Normocephalic, atraumatic, mucous membranes moist. Heart: Intermittently tachycardic. Regular rate and rhythm, normal S1 and S2, no murmurs appreciated. Lungs: Bibasilar wheezing, clear breath sounds in upper lobes. Abdomen: Soft, nondistended, nontender, positive bowel sounds. No guarding or rebound tenderness. Neurologic: Alert and oriented x3, no gross neurological deficit, and patient able to move all 4 extremities. Extremities: No edema. Skin: No rash or ecchymoses. Objective Labs 10/05/25 05:30 10/05/25 05:30 Labs: Laboratory Results - last 24 hr 10/04/25 05:38 WBC 15.6 H D RBC 4.06 Hgb 12.9 Hct 38.4 MCV 95 MCH 31.8 MCHC 33.6 RDW Std Deviation 44.6 Plt Count 330 Neut % (Auto) 88 H Lymph % (Auto) 5 L [place] % (Auto) 6 Eos % (Auto) 0 Baso % (Auto) 0 Neut # (Auto) 13.7 H Lymph # (Auto) 0.8 L [place] # (Auto) 1.0 H Eos # (Auto) 0.0 Baso # (Auto) 0.0 Immature Gran # (Auto) 0.11 H Absolute Nucleated RBC 0.00 Immature Gran % 1 H Nucleated RBC % 0 Sodium 139 Potassium 4.2 Chloride 101 Carbon Dioxide 28.9 Anion Gap 9 BUN 7 L Creatinine 0.8 Estim Creat Clear Calc 80.0 eGFR > 60 BUN/Creatinine Ratio 9 L Glucose 145 H Calculated Osmolality 278 Calcium 9.7 Corrected Calcium 9.7 Phosphorus 2.5 Magnesium 2.2 Total Bilirubin 0.2 L AST 14 ALT 20 Alkaline Phosphatase 82 Total Protein 7.1 Albumin 4.5 Globulin 2.6 Albumin/Globulin Ratio 1.7 ABG Interpretation ABG results: 10/02/25 13:13 VBG pH 7.36 VBG pCO2 56 VBG pO2 34 VBG Base Excess 4 H Quality Measures Quality Measures none Assessment & Plan Assessment Current Active Medications: Generic Name Dose Route Start Last Admin Trade Name Freq PRN Reason Stop Dose Admin Acetaminophen 650 mg 10/02/25 16:33 10/03/25 14:11 Acetaminophen 325 Mg Tablet PO 11/01/25 16:32 650 mg Q6H PRN Administration PAIN SCALE 1-3 (mild Albuterol/Ipratropium 3 ml 10/02/25 19:00 10/04/25 07:33 Albuterol/Ipratropium (Duoneb) Rt Marly 3 Ml Nebu INH 11/01/25 18:59 3 ml Q4HRRT STEPHANIE Administration Albuterol/Ipratropium 3 ml 10/03/25 10:00 Albuterol/Ipratropium (Duoneb) Rt Marly 3 Ml Nebu INH 11/02/25 09:59 Q2HR PRN SHORTNESS OF BREATH OR WHEEZ Enoxaparin Sodium 40 mg 10/04/25 09:00 10/04/25 08:18 Enoxaparin Sod Inj 40 Mg/0.4 Ml Syringe SC 10/18/25 08:59 Not Given QDAY STEPHANIE Guaifenesin 200 mg 10/03/25 12:05 10/03/25 23:47 Guaifenesin Syrup 200 Mg/10 Ml Udc PO 11/02/25 12:04 200 mg QID PRN Administration COUGH Protocol Ceftriaxone Sodium/Dextrose 1 gm in 50 mls @ 100 mls/hr 10/02/25 16:40 10/04/25 08:13 Rocephin/D5w 1gm Iv Premix IV 10/09/25 16:39 100 mls/hr QDAY STEPHANIE Administration Azithromycin 500 mg/ Sodium 250 mls @ 250 mls/hr 10/02/25 16:41 10/03/25 20:49 Chloride IV 10/09/25 16:40 250 mls/hr QDAY@2100 STEPHANIE Administration Levothyroxine Sodium 88 mcg 10/03/25 06:00 10/04/25 05:40 Levothyroxine Sodium 88 Mcg Tablet PO 11/02/25 05:59 88 mcg ACBR STEPHANIE Administration Methylprednisolone Sodium Succinate 60 mg 10/03/25 14:00 10/04/25 05:40 Methylprednisolone Sod Succ 40 Mg/Ml Vial IVP 10/10/25 13:59 60 mg TID STEPHANIE Administration Nicotine 7 mg 10/03/25 09:45 10/04/25 08:13 Nicotine Patch 7 Mg/24 Hr Patch.Td24 TOP 11/02/25 09:44 7 mg QDAY STEPHANIE Administration Pantoprazole Sodium 40 mg 10/03/25 09:00 10/04/25 08:13 Pantoprazole 40 Mg Tablet PO 11/02/25 08:59 40 mg QDAY STEPHANIE Administration Sennosides 1 tab 10/02/25 17:13 Senna/Docusate Sod 1 Tab Tablet PO 11/01/25 17:12 QDAY PRN CONSTIPATION Protocol Plan Patient is a 55 years old female with history of asthma, COPD not on home O2 (was on 2L, but taken off O2), bipolar, schizophrenia, cardiac history (unknown), hypothyroidism, and GERD presented on 10/02/25 in the ED for shortness of breathe after failing a breathing treatment outpatient. She was admitted for AHRF secondary to COPD exacerbation. #AHRF 2/2 COPD Exacerbation #Dry cough - Failed outpatient breathing treatment - Reported to have sick contact - 90% on 4L on admission. - CXR showed mild CHF. - Influenza A&B, COVID-negative Plan: - IV methylprednisone to 60mg TID (10/03- - Duoneb Q4HRRT, Q2H PRN - Rocephin (10/02- - Azithromycin (10/02-10/04) - Pending RSV - Titrate O2 with goal of 88%-92% - Guafenesin prn for cough #Bipolar #Schizophrenia - Received monthly injection of Haldol for schizophrenia, last injection a couple days prior to [place] (09/26 or 09/27) - Confirmed home psych medications Plan: - Resume home dose buspirone 30 mg BID, risperidone 5 mg nightly, trazodone 150 mg nightly #Hypothyroidism - TSH 6.74 on admission Plan: - Levothyroxine 88mcg daily #GERD - Protonix 40mg QD #Hx of smoking - Nicotine patch 7 mg daily Health maintenance Dispo: med surg, COPD exacerbation DVT prophylaxis: Lovenox GI prophylaxis: Protonix 40 Antibiotics: Rocpehin + Azithromycin Bowel: Senna/Docusate Diet: Cardiac diet, CHO consistent low Lines: Peripheral IV Code status: Full code Patient plan of care was discussed with the senior resident, Dr. Antonio, and the attending physician, Dr. Herrera. Nichole Driscoll DO, PGY-1 Attending Provider Attestation/Addendum I have examined the patient, reviewed labs and imaging findings, discussed the case with the resident(s), and reviewed entered orders. I agree with the plan of care as outlined in this note. Dr. Javier MD
[2025-10-04] MEDS: guaiFENesin SYRUP 200 MG/10 ML UDC PO (14:02)
--- NOTE | 2025-10-04 19:48 | PC.NURSE ---
Pt cant remember her home meds, per pt her family member has her home med list. I asked if they can bring it tomorrow, pt said she might gonna go home in AM.
[2025-10-04] MEDS: AZITHROMYCIN INJ 500 MG in SODIUM CHLORIDE 0.9% 250 ML 250 ML 250 MG IV (20:50)
[2025-10-05] VITALS (8 sets, daily range): BP systolic 118–126; BP diastolic 72–85; PULSE 84–106; RESP 18–93; TEMP 36.1–36.3; O2SAT 90–95; BMI 37.8
[2025-10-05] MEDS: guaiFENesin SYRUP 200 MG/10 ML UDC PO ×2 (00:15→13:45)
[2025-10-05] MEDS: ALBUTEROL/IPRATROPIUM (Duoneb) RT SOL 3 ML NEBU INH ×3 (02:45→10:51)
[2025-10-05] MEDS: LEVOTHYROXINE SODIUM 88 MCG TABLET PO (05:11)
[2025-10-05 06:01] LABS: Basophils # (Auto) 0.0 Thou/mm3 (0.0-0.2); Basophils % (Auto) 0 % (0-2.5); Eosinophils # (Auto) 0.0 Thou/mm3 (0.0-0.5); Eosinophils % (Auto) 0 % (0-10); Hematocrit 38.4 % (36.0-46.0); Hemoglobin 12.9 g/dL (12.0-16.0); Immature Granulocytes Auto 0.16 Thou/mm3 (0.00-0.00); Lymphocytes # (Auto) 0.9 Thou/mm3 (1.0-4.8); Lymphocytes % (Auto) 7 % (10-50); Mean Corpuscular HGB Conc 33.6 g/dl (31.0-37.0); Mean Corpuscular Hemoglobin 31.8 pg (25.0-35.0); Mean Corpuscular Volume 95 fL (80-100); Monocytes # (Auto) 0.8 Thou/mm3 (0.0-0.8); Monocytes % (Auto) 6 % (0-12); Neutrophils # (Auto) 11.4 Thou/mm3 (1.8-7.7); Neutrophils % (Auto) 86 % (37-80); Nucleated Red Blood Cell # 0.00 Thou/mm3 (0.00-0.00); Nucleated Red Blood Cell % 0 /100 WBC (0); Platelet Count 322 Thou/mm3 (140-440); RDW Standard Deviation 45.6 fL (36.4-46.3); Red Blood Count 4.06 Miln/mm3 (4.00-5.20); White Blood Count 13.2 Thou/mm3 (3.6-11.0)
[2025-10-05] MEDS: BALSAM PERU/CASTOR OIL (Venelex) 60 GM TUBE TOP (06:05)
[2025-10-05 06:27] LABS: Alanine Aminotransferase 17 U/L (10-49); Albumin, Serum 4.4 gm/dL (3.5-5.0); Albumin/Globulin Ratio 1.8 (1.2-2.2); Alkaline Phosphatase 75 U/L (46-116); Anion Gap 9 (7-16); Aspartate Amino Transferase 12 U/L (0-34); BUN/Creatinine Ratio 15 Ratio (12-20); Bilirubin,Total 0.2 mg/dL (0.3-1.2); Blood Urea Nitrogen 12 mg/dL (9-23); Calcium 9.8 mg/dL (8.3-10.6); Calcium (Corrected) 9.8 mg/dL (8.5-10.1); Carbon Dioxide 29.2 mMol/L (20.0-31.0); Chloride 102 mMol/L (98-107); Creatinine (Component) 0.8 mg/dL (0.6-1.3); Estimated Creatinine Clearance 80.0 mL/min (>60); Globulin 2.5 gm/dL (2.3-3.5); Glucose 153 mg/dL (74-106); Magnesium 2.4 mg/dL (1.6-2.6); Osmolality,Calculated 282 (275-295); Phosphorous 3.1 mg/dL (2.4-5.1); Potassium 4.7 mMol/L (3.4-5.1); Sodium 140 mMol/L (136-145); Total Protein 6.9 gm/dL (5.7-8.2); eGFR > 60 See Note
[2025-10-05] MEDS: cefTRIAXone/D5w 1gm IV premix 1 GM/50 ML BAG IV (09:10)
[2025-10-05] MEDS: PANTOPRAZOLE 40 MG TABLET PO (09:11)
[2025-10-05] MEDS: NICOTINE PATCH 7 MG/24 HR PATCH.TD24 TOP (09:11)
--- NOTE | 2025-10-05 10:36 | PC.WOUND ---
Spoke with Niurka WESTON, informed of skin breakdown to bilateral ears. RT to evaluate possibility of transitioning to nasal cannula.
--- NOTE | 2025-10-05 10:58 | PC.RT ---
Pt switched to 3L nasal cannula to prevent skin breakdown.
--- NOTE | 2025-10-05 12:45 | PC.NURSE ---
pt's O2 saturation is maintaining at 90% on RA while walking
--- NOTE | 2025-10-05 13:55 | ESDS_ITS ---
<Statement entered by Yefri Cartwright MD - 10/05/25 14:21> Patient seen and examined at bedside. I discussed and supervised with the fall internship physician who took care of this patient. I personally saw and examined the patient. I agree with most of the assessment and plan. Plan of care discussed with attending Dr. Herrera. Yefri Cartwright MD PGY-2 Planned Discharge Date 10/05/25 DS: Providers Provider Date of admission: 10/03/25 14:16 Primary care physician: Sunny Jones MD Admitting Provider: Montana Montejo MD Attending Provider on Admission: Montana Montejo MD Consults: 10/02/25 22:53 Referral Smoking Cessation Counseling Routine Comment: Smoking Cessation Education Needed 10/05/25 06:26 Referral Registered Dietitian Routine Comment: Referral Wound Care Routine Comment: Attending Provider on DC: Jj Herrera MD Discharging Provider: Nichole Driscoll DO DS: Diagnosis Problem List Completed Was Problem List Reviewed/Reconciled?: Yes Hospital Course Hospital Course Hospital course: Patient is a 55 years old female with history of asthma, COPD not on home O2 (was on 2L, but taken off O2), bipolar, schizophrenia, cardiac history (unknown), hypothyroidism, and GERD presented on 10/02/25 in the ED for shortness of breathe after failing a breathing treatment outpatient. She was admitted for AHRF secondary to COPD exacerbation. Received treatment with Oxymask, high dose steroids, frequent breathing treatments, and Rocephin and azithromycin for CAP. Patient showed improvement over course of hospital stay, was able to tolerate 6 minute walk test without desaturations on room air. Patient stable and medically cleared for discharge. Diagnoses: #AHRF 2/2 COPD Exacerbation #CAP #Bipolar #Schizophrenia #Hypothyroidism #GERD #Hx of smoking Discharge plan: Follow up with primary care physician within 1 week of discharge Instructions have been explained to the patient with regards to their medications and how to take them. Patient was able to explain back to physician and nursing staff how to take their medications. Patient expressed understanding with instructions. New Medications: Augementin for 5 more days for pneumonia Continue to take the rest of your medications as prescribed by your primary care physician. Patient has been explained that should any symptoms recur or worsen patient is instructed to return to the Emergency Department. Patient plan of care was discussed with the senior resident, Dr. Antonio, and the attending physician, Dr. Herrera. Nichole Driscoll DO, PGY-1 Status at Discharge Functional status at discharge: independent ambulation Overall status at discharge: patient is back to baseline Time Spent with Patient Time attestation: Total time spent providing and/or coordinating discharge services: Time spent: Greater than 30 minutes Exam Vital Signs Temp Pulse Resp BP Pulse Ox O2 Del Method O2 Flow Rate 97.1 F 103 H 18 120/85 H 93 L Oxy Mask 3 10/05/25 08:00 10/05/25 10:52 10/05/25 10:52 10/05/25 08:00 10/05/25 10:52 10/05/25 08:00 10/05/25 10:52 Narrative Exam Physical Exam General: Awake and in no acute distress. Conversational and non-toxic appearing. Obese. Saturating well on room air. HEENT: Normocephalic, atraumatic, mucous membranes moist. Heart: Intermittently tachycardic. Regular rate and rhythm, normal S1 and S2, no murmurs appreciated. Lungs: Bibasilar wheezing, clear breath sounds in upper lobes. Abdomen: Soft, nondistended, nontender, positive bowel sounds. No guarding or rebound tenderness. Neurologic: Alert and oriented x3, no gross neurological deficit, and patient able to move all 4 extremities. Extremities: No edema. Skin: No rash or ecchymoses. Discharge Plan Plan Patient Disposition: HOME (Self Care) Care Plan Goals: Follow up with primary care physician within 1 week of discharge Instructions have been explained to the patient with regards to their medications and how to take them. Patient was able to explain back to physician and nursing staff how to take their medications. Patient expressed understanding with instructions. New Medications: Augementin for 5 more days for pneumonia Continue to take the rest of your medications as prescribed by your primary care physician. Patient has been explained that should any symptoms recur or worsen patient is instructed to return to the Emergency Department. Prescriptions/Referrals Prescriptions/Med Rec: New dextromethorphan HBr [Robitussin CoughGel] 15 mg capsule 30 mg PO Q6H PRN (Reason: cough) Qty: 30 0RF amoxicillin-pot clavulanate 875-125 mg tablet 1 tab PO BID 5 Days Qty: 10 0RF Continued clonazepam 1 mg tablet 1 mg PO HS bupropion HCl 100 mg tablet 100 mg PO BID divalproex 500 mg tablet extended release 24 hr 1,000 mg PO QPM buspirone 15 mg tablet 15 mg PO QDAY albuterol sulfate 90 mcg/actuation HFA aerosol inhaler 1 inh inhalation QID PRN (Reason: shortness of breath or wheezing) Qty: 6.7 0RF budesonide-formoterol 80-4.5 mcg/actuation HFA aerosol inhaler 2 puff inhalation BID Qty: 10.2 0RF atorvastatin 40 mg tablet 40 mg PO QDAY nicotine 21 mg/24 hr patch 24 hour 21 mg TOPICAL QDAY levothyroxine 88 mcg tablet 88 mcg PO QDAY metformin 500 mg tablet 500 mg PO QDAY famotidine [Pepcid] 40 mg tablet 40 mg PO BID Qty: 20 0RF Referrals: Sunny Jones MD [Primary Care Provider, Family Practice] Patient/Caregiver Discharge Instructions Education Materials: Discharge Instructions: COPD Print Language: Khmer Stand Alone Forms: [facility] Award Info., Patient Portal Info Letter Discharge Order Discharge Orders: Discharge (Routine); Ordered 10/05/25 Ordered By: Alfonzo Jones Quality Discharge Quality Measures VTE prophylaxis Attestestation MD Attestation I have examined the patient, reviewed labs and imaging findings, discussed the case with the resident(s), and reviewed entered orders. I agree with the plan of care as outlined in this note. Time Spent: [address] Javier MD
== END 2025-10-05 14:19 | disposition home or self-care (01) | DRG 140 ==
LOC: SERX 16:22 → SERHOLD 16:50 → S3SX 20:28
PROVIDERS: Nurse Practitioner Family; Admitting Provider Internal Medicine; Emergency Provider Emergency Medicine; PCP Family Medicine; Visit Provider Internal Medicine
DX: J44.1 Chronic obstructive pulmonary disease with (acute) exacerbation (principal); J44.0 Chronic obstructive pulmonary disease with (acute) lower respiratory infection; J96.01 Acute respiratory failure with hypoxia; J18.9 Pneumonia, unspecified organism; F20.9 Schizophrenia, unspecified; E03.9 Hypothyroidism, unspecified; K21.9 Gastro-esophageal reflux disease without esophagitis; F31.9 Bipolar disorder, unspecified; F12.90 Cannabis use, unspecified, uncomplicated; I50.9 Heart failure, unspecified; Z87.891 Personal history of nicotine dependence; Z79.890 Hormone replacement therapy; Z79.899 Other long term (current) drug therapy
CPT/HCPCS: 36415; 71045; 80053; 82803; 83036; 83605; 83735; 83880; 84100; 84145; 84443; 84484; 85025; 85730; 86140; 87040; 87502; 87634; 87635; 93005; 93225; 94640; 96374; 99284; A9270; G0378; J0456; J0696; J1100; J1644; J1650; J2919; J3475; J7050; J7644; J7611